=== PATIENT | male | born 1975 | race African-American/Black ===

== ENCOUNTER 2018-02-25 06:48 | Inpatient (IN) | payer SELFPAY ==
[~2018-02-25] VITALS: Ht 162.6 cm; Wt 78.0 kg
[2018-02-25] VITALS (19 sets, daily range): BP systolic 141–190; BP diastolic 69–105
[~2018-02-25 06:48] MED LIST: CIPR500T94 PO; HYDR-971 PO; IBUP-1060 PO
[2018-02-25] MEDS ORDERED: ASPIRIN CHEWABLE 81 MG TABLET. PO ONE (07:00)
[2018-02-25] MEDS ORDERED: NITROGLYCERIN PREMIX 250 ML IV ONE (07:00)
[2018-02-25] MEDS ORDERED: MORPHINE SULFATE 2 MG/ML VIAL. IV ONE (07:00)
[2018-02-25] MEDS ORDERED: LABETALOL 20 MG/4 ML DISP.SYRIN. IVP ONE (07:00)
--- NOTE | 2018-02-25 07:06 | PHYS DOC ---
Past Medical History Past Medical History: Hypertension Past Surgical History: No Surgical History Smoking: Cigarettes, 1 Pack Per Day Alcohol Use: Occasionally Drug Use: Marijuana Adult General Chief Complaint Chief Complaint: CHEST PAIN HPI HPI Patient is a 43-year-old -Serbian male who presents to the emergency department for evaluation. He states that for the past week he has had some sharp anterior chest pain, which does not radiate, it is not worsened by exertion or deep breathing. He states he has also had some exertional shortness of breath. His symptoms have been waxing and waning for a week. Nothing in particular seems to affect his chest pain, either improving or exacerbating his discomfort. He has not had any nausea, vomiting, or diaphoresis. He denies any headache or vision changes. He is noted to be profoundly hypertensive upon arrival. He states he has a history of hypertension, but does not go to doctors regularly and has not been on medication. He denies any fevers or chills, or cough. Patient does admit to occasional marijuana use but denies cocaine use or other illicit drugs. Review of Systems Review of Systems Constitutional: Denies fever or chills [] Eyes: Denies change in visual acuity, redness, or eye pain [] HENT: Denies nasal congestion or sore throat [] Respiratory: Denies cough or pleuritic chest pain[] Cardiovascular: No additional information not addressed in HPI [] GI: Denies abdominal pain, nausea, vomiting, bloody stools or diarrhea [] : Denies dysuria or hematuria [] Musculoskeletal: Denies back pain or joint pain, denies radiation of chest pain to the back. [] Integument: Denies rash or skin lesions [] Neurologic: Denies headache, focal weakness or sensory changes [] Endocrine: Denies polyuria or polydipsia [] All other systems were reviewed and found to be within normal limits, except as documented in this note. Current Medications Current Medications Current Medications Medications (Trade) Dose Ordered Sig/Preeti Start Time Stop Time Status Last Admin Dose Admin Aspirin (Children'S Aspirin) 324 mg 1X ONCE 02/25/18 07:00 02/25/18 07:04 DC 02/25/18 07:14 324 MG Furosemide (Lasix) 40 mg 1X ONCE 02/25/18 08:00 02/25/18 08:01 02/25/18 07:57 40 MG Labetalol HCl (Normodyne Iv Push) 20 mg 1X ONCE 02/25/18 07:00 02/25/18 07:04 DC 02/25/18 07:12 20 MG Morphine Sulfate (Morphine Sulfate) 4 mg 1X ONCE 02/25/18 07:00 02/25/18 07:04 DC 02/25/18 07:15 4 MG Nitroglycerin/ Dextrose 250 ml @ 3 mls/hr 1X ONCE 02/25/18 07:00 02/28/18 18:19 02/25/18 07:14 3 MLS/HR Potassium Chloride/Water 100 ml @ 100 mls/hr Q1H 02/25/18 08:00 02/25/18 09:59 02/25/18 07:50 100 MLS/HR Potassium Chloride (Klor-Con) 40 meq 1X ONCE 02/25/18 07:45 02/25/18 07:46 DC 02/25/18 07:49 40 MEQ Allergies Allergies Allergies Coded Allergies Type Severity Reaction Last Updated Verified No Known Drug Allergies 02/02/14 No Physical Exam Physical Exam PHYSICAL EXAM: CONSTITUTIONAL: Well developed, well nourished HEAD: normocephalic, atraumatic EENT: PERRL, EOMI. Conjunctivae normal color, sclerae non-icteric; moist mucous membranes. NECK: Supple, non-tender; no meningismus. LUNGS: Lungs CTA, breathing even and unlabored. Normal air movement. HEART: Regular rate and rhythm, no murmur CHEST: No deformity; non-tender ABDOMEN: The abdomen is soft, and non-tender, no masses or bruits. EXTREM: Normal ROM; no deformity, no calf tenderness. Normal pulses palpable in all extremities. There is no pedal edema. SKIN: No rash; no diaphoresis NEURO: Alert; normal speech and cognition; CN's grossly intact; strength grossly intact without focal deficit. BACK: No CVA TTP. Current Patient Data Vital Signs Vital Signs Date Time Temp Pulse Resp B/P (MAP) Pulse Ox O2 Delivery O2 Flow Rate FiO2 02/25/18 07:53 83 196/129 (151) 02/25/18 07:26 19 99 Room Air 02/25/18 06:48 98.3 98.3 Lab Values Laboratory Tests Test 02/25/18 07:00 White Blood Count 8.8 x10^3/uL (4.0-11.0) Red Blood Count 4.81 x10^6/uL (4.30-5.70) Hemoglobin 14.2 g/dL (13.0-17.5) Hematocrit 42.3 % (39.0-53.0) Mean Corpuscular Volume 88 fL (79-100) Mean Corpuscular Hemoglobin 30 pg (25-35) Mean Corpuscular Hemoglobin Concent 34 g/dL (31-37) Red Cell Distribution Width 13.8 % (11.5-14.5) Platelet Count 213 x10^3/uL (140-400) Neutrophils (%) (Auto) 70 % (31-73) Lymphocytes (%) (Auto) 20 % (24-48) L Monocytes (%) (Auto) 8 % (0-9) Eosinophils (%) (Auto) 1 % (0-3) Basophils (%) (Auto) 1 % (0-3) Neutrophils # (Auto) 6.1 x10^3uL (1.8-7.7) Lymphocytes # (Auto) 1.8 x10^3/uL (1.0-4.8) Monocytes # (Auto) 0.7 x10^3/uL (0.0-1.1) Eosinophils # (Auto) 0.1 x10^3/uL (0.0-0.7) Basophils # (Auto) 0.1 x10^3/uL (0.0-0.2) Sodium Level 129 mmol/L (136-145) L Potassium Level 2.7 mmol/L (3.5-5.1) *L Chloride Level 92 mmol/L (98-107) L Carbon Dioxide Level 31 mmol/L (21-32) Anion Gap 6 (6-14) Blood Urea Nitrogen 18 mg/dL (8-26) Creatinine 1.9 mg/dL (0.7-1.3) H Estimated GFR (Cockcroft-Gault) 47.5 BUN/Creatinine Ratio 9 (6-20) Glucose Level 139 mg/dL (70-99) H Calcium Level 10.5 mg/dL (8.5-10.1) H Magnesium Level 2.2 mg/dL (1.8-2.4) Total Bilirubin 1.0 mg/dL (0.2-1.0) Aspartate Amino Transferase (AST) 31 U/L (15-37) Alanine Aminotransferase (ALT) 25 U/L (16-63) Alkaline Phosphatase 86 U/L (46-116) Creatine Kinase 237 U/L (39-308) Creatine Kinase MB (Mass) 2.1 ng/mL (0.0-3.6) Creatine Kinase MB Relative Index 0.9 % (0-4) Troponin I Quantitative 0.141 ng/mL (0.000-0.055) [id number]-[id number]-Type Natriuretic Peptide 9389 pg/mL (0-124) H Total Protein 8.4 g/dL (6.4-8.2) H Albumin 3.9 g/dL (3.4-5.0) Albumin/Globulin Ratio 0.9 (1.0-1.7) L Laboratory Tests 02/25/18 07:00 Laboratory Tests 02/25/18 07:00 EKG EKG [Normal sinus rhythm at a rate of 108 bpm, normal axis, normal intervals. Biatrial enlargement is present. There are diffuse nonspecific ST/T changes, with subtle ST depression inferiorly and laterally. There are no old EKG's available for comparison. ] Radiology/Procedures Radiology/Procedures [PROCEDURE: PORTABLE CHEST 1V Portable chest, 02/25/2018: HISTORY: Chest pain, hypertension The heart size and pulmonary vascularity are normal. No pulmonary infiltrate is seen. There is no evidence of pleural fluid. IMPRESSION: No acute cardiopulmonary abnormality is detected.] Course & Med Decision Making Course & Med Decision Making Pertinent Labs and Imaging studies reviewed. (See chart for details) 8:00 AM:The patient's condition remains stable. Blood pressure has improved to 192/127, from approximately 260/160 upon arrival. The patient's chest discomfort has improved as well. I spoke with the hospitalist, who accepted the patient to the hospital for further evaluation and treatment. CRITICAL CARE TIME: 45 Minutes, excluding any procedures and care of other patients. Dragon Disclaimer Dragon Disclaimer This electronic medical record was generated, in whole or in part, using a voice recognition dictation system. Departure Departure Impression: Primary Impression: Hypertensive emergency Additional Impressions: Chest pain Renal insufficiency Hypokalemia Disposition: ADMITTED INPATIENT (ICU) Admitting Physician: Xie. Youssef Condition: GUARDED Referrals: NO PCP (PCP) Problem Qualifiers DORINDA BRADLEY MD Feb 25, 2018 07:06
[2018-02-25 07:17] LABS: BASO # 0.1 x10^3/uL (0.0-0.2); BASO % 1 % (0-3); EOS # 0.1 x10^3/uL (0.0-0.7); EOS % 1 % (0-3); HEMATOCRIT 42.3 % (39.0-53.0); HEMOGLOBIN 14.2 g/dL (13.0-17.5); LYMPH # 1.8 x10^3/uL (1.0-4.8); LYMPH % 20 % (24-48); MEAN CORPUSCULAR HEMOGLOBIN 30 pg (25-35); MEAN CORPUSCULAR HGB CONC 34 g/dL (31-37); MEAN CORPUSCULAR VOLUME 88 fL (79-100); MONO # 0.7 x10^3/uL (0.0-1.1); MONO % 8 % (0-9); NEUT # 6.1 x10^3uL (1.8-7.7); NEUT % 70 % (31-73); PLATELET COUNT 213 x10^3/uL (140-400); RED BLOOD COUNT 4.81 x10^6/uL (4.30-5.70); RED CELL DISTRIBUTION WIDTH 13.8 % (11.5-14.5); WHITE BLOOD COUNT 8.8 x10^3/uL (4.0-11.0)
[2018-02-25 07:29] LABS: ALBUMIN 3.9 g/dL (3.4-5.0); ALBUMIN/GLOBULIN RATIO 0.9 (1.0-1.7); CALCIUM 10.5 mg/dL (8.5-10.1); CREATININE 1.9 mg/dL (0.7-1.3); GFR 47.5; MAGNESIUM 2.2 mg/dL (1.8-2.4); TOTAL PROTEIN 8.4 g/dL (6.4-8.2)
[2018-02-25 07:32] LABS: POTASSIUM 2.7 mmol/L (3.5-5.1)
--- NOTE | 2018-02-25 07:40 | RAD ---
Portable chest, 02/25/2018: HISTORY: Chest pain, hypertension The heart size and pulmonary vascularity are normal. No pulmonary infiltrate is seen. There is no evidence of pleural fluid. IMPRESSION: No acute cardiopulmonary abnormality is detected. Electronically signed by: Erasto Cortes MD (02/25/2018 7:37 AM) [facility]
[2018-02-25] MEDS ORDERED: POTASSIUM CHLORIDE 20 MEQ TABLET.ER. PO ONE ×2 (07:45→09:30)
[2018-02-25] MEDS ORDERED: POTASSIUM CHLORIDE 20MEQ 50 ML IV ONE (07:45)
[2018-02-25] MEDS: POTASSIUM CHLORIDE 10MEQ 100 ML IV SCH ×2 (07:50→09:17)
[2018-02-25] MEDS ORDERED: FUROSEMIDE 20 MG/2 ML VIAL. IVP ONE (08:00)
--- NOTE | 2018-02-25 08:39 | EKG ---
[facility] [address] [place] [address] Test Date: 2018-02-25 Test Time: 06:52:48 Pat Name: IMANI OLMSTEAD Department: Room: 108 1 Gender: M Software Client Architect: : [id number] Requested By: DORINDA BRADLEY Order Number: [id number] Reading MD: Antoine Fernandez MD Measurements Intervals [place] Rate: 108 P: 66 [place]: 120 QRS: 23 QRSD: 96 T: 137 QT: 336 QTc: 454 Interpretive Statements SINUS TACHYCARDIA BIATRIAL ENLARGEMENT LVH WITH REPOLARIZATION ABNORMALITY Electronically Signed On 02-25-2018 11:00:20 CDT by Antoine Fernandez MD
[2018-02-25] MEDS ORDERED: ACETAMINOPHEN 325 MG TABLET. PO PRN (08:45)
[2018-02-25] MEDS ORDERED: HYDROcodone/APAP 5/325MG 1 TAB TABLET PO PRN (08:45)
[2018-02-25] MEDS ORDERED: MORPHINE SULFATE 2 MG/ML VIAL. IV PRN (08:45)
[2018-02-25] MEDS ORDERED: DOCUSATE SODIUM 100 MG CAPSULE. PO PRN (08:45)
[2018-02-25] MEDS ORDERED: traMADol 50 MG TABLET PO PRN (08:45)
[2018-02-25] MEDS ORDERED: ONDANSETRON PF 4 MG/2 ML VIAL. IV PRN (08:45)
[2018-02-25] MEDS: amLODIPine BESYLATE 10 MG TABLET PO SCH (10:03)
[2018-02-25] MEDS: LABETALOL 20 MG/4 ML DISP.SYRIN. IVP PRN (10:29)
--- NOTE | 2018-02-25 11:47 | PDOC1 ---
History and Physical Date of Admission Date of Admission 02/25/18 Identification/Chief Complaint Chief Complaint sob, chest pain Source Source: Chart review, Patient History of Present Illness History of Present Illness HPI HPI Patient is a 43-year-old -Citizen Of [place] male who presents to the emergency department for evaluation for chest pain and sob for 1 week. pt was diagnosed with HTN 2 years , never on meds. no PCP. 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 The chest pain is left side, sharp, lasting for seconds, no radiation, has sob, no diaphoresis or related N/V. had N /V and diarrhea one time last week. He cannot sleep well with sob. no fever, chills, cough, sputum. He states he has also had He is noted to be profoundly hypertensive upon arrival. Patient does admit to occasional marijuana use but denies cocaine use or other illicit drugs. BP>200 in ER, got one time labetolol and nitro drip started, BP still high as 170s when i saw him in ER. pain free at that time. 1PPD ,6 packs of beer daily, denies withdrawl. Past Medical History Cardiovascular: HTN Past Surgical History Past Surgical History: No pertinent history Family History Family History: Hypertension Social History Smoke: 1 pack per day ALCOHOL: heavy Drugs: Marijuana Current Problem List Problem List Problems Medical Problems: (1) Chest pain Status: Acute (2) Hypertensive emergency Status: Acute (3) Hypokalemia Status: Acute (4) Renal insufficiency Status: Acute Current Medications Current Medications Current Medications Medications (Trade) Dose Ordered Sig/Preeti Start Time Stop Time Status Last Admin Dose Admin Acetaminophen (Tylenol) 650 mg PRN Q6HRS PRN 02/25/18 08:45 Acetaminophen/ Hydrocodone Bitart (Lortab 5/325) 1 tab PRN Q6HRS PRN 02/25/18 08:45 Amlodipine Besylate (Norvasc) 10 mg DAILY 02/25/18 09:30 02/25/18 10:03 10 MG Aspirin (Children'S Aspirin) 324 mg 1X ONCE 02/25/18 07:00 02/25/18 07:04 DC 02/25/18 07:14 324 MG Docusate Sodium (Colace) 100 mg PRN DAILY PRN 02/25/18 08:45 Furosemide (Lasix) 40 mg 1X ONCE 02/25/18 08:00 02/25/18 08:01 DC 02/25/18 07:57 40 MG Labetalol HCl (Normodyne Iv Push) 20 mg PRN Q2HR PRN 02/25/18 08:45 02/25/18 10:29 20 MG Morphine Sulfate (Morphine Sulfate) 2 mg PRN Q2HR PRN 02/25/18 08:45 Nicardipine HCl 50 mg/Sodium Chloride 270 ml @ 0 mls/hr CONT PRN 02/25/18 10:45 02/25/18 10:47 0 MLS/HR Nitroglycerin/ Dextrose 250 ml @ 3 mls/hr 1X ONCE 02/25/18 07:00 02/28/18 18:19 02/25/18 07:14 3 MLS/HR Ondansetron HCl (Zofran) 4 mg PRN Q6HRS PRN 02/25/18 08:45 Potassium Chloride/Water 100 ml @ 100 mls/hr Q1H 02/25/18 08:00 02/25/18 09:59 DC 02/25/18 09:17 100 MLS/HR Potassium Chloride (Klor-Con) 40 meq 1X ONCE 02/25/18 09:30 02/25/18 09:31 DC 02/25/18 10:03 40 MEQ Tramadol HCl (Ultram) 50 mg PRN Q6HRS PRN 02/25/18 08:45 Allergies Allergies Allergies Coded Allergies Type Severity Reaction Last Updated Verified No Known Drug Allergies 02/02/14 No ROS Review of System CONSTITUTIONAL: No fever or chills EYES: No recent changes SKIN: No rash or itching CARDIOVASCULAR: No chest pain, syncope, palpitations, or edema RESPIRATORY: No SOB or cough GASTROINTESTINAL: No nausea, vomiting or abdominal pain NEUROLOGICAL: No headaches or weakness ENDOCRINE: No cold or heat intolerance GENITOURINARY: No urgency or frequency of urination MUSCULOSKELETAL: No back pain or joint pain LYMPHATICS: No enlarged lymph nodes PSYCHIATRIC: No anxiety or depression Physical Exam Physical Exam GEN.: No apparent distress. Alert and oriented. HEENT: Head is normocephalic, atraumatic NECK: Supple. LUNGS: Clear to auscultation. HEART: RRR, S1, S2 present. Peripheral pulses intact ABDOMEN: Soft, nontender. Positive bowel sounds. EXTREMITIES: Without any cyanosis. NEUROLOGIC: Normal speech, normal tone PSYCHIATRIC: Normal affect, normal mood. SKIN: No ulcerations Vitals Vitals Vital Signs Date Time Temp Pulse Resp B/P (MAP) Pulse Ox O2 Delivery O2 Flow Rate FiO2 02/25/18 11:00 83 20 183/69 (107) 96 Room Air 02/25/18 10:00 98.2 98.2 Labs Labs Laboratory Tests Test 02/25/18 07:00 White Blood Count 8.8 x10^3/uL (4.0-11.0) Red Blood Count 4.81 x10^6/uL (4.30-5.70) Hemoglobin 14.2 g/dL (13.0-17.5) Hematocrit 42.3 % (39.0-53.0) Mean Corpuscular Volume 88 fL (79-100) Mean Corpuscular Hemoglobin 30 pg (25-35) Mean Corpuscular Hemoglobin Concent 34 g/dL (31-37) Red Cell Distribution Width 13.8 % (11.5-14.5) Platelet Count 213 x10^3/uL (140-400) Neutrophils (%) (Auto) 70 % (31-73) Lymphocytes (%) (Auto) 20 % (24-48) Monocytes (%) (Auto) 8 % (0-9) Eosinophils (%) (Auto) 1 % (0-3) Basophils (%) (Auto) 1 % (0-3) Neutrophils # (Auto) 6.1 x10^3uL (1.8-7.7) Lymphocytes # (Auto) 1.8 x10^3/uL (1.0-4.8) Monocytes # (Auto) 0.7 x10^3/uL (0.0-1.1) Eosinophils # (Auto) 0.1 x10^3/uL (0.0-0.7) Basophils # (Auto) 0.1 x10^3/uL (0.0-0.2) Sodium Level 129 mmol/L (136-145) Potassium Level 2.7 mmol/L (3.5-5.1) Chloride Level 92 mmol/L (98-107) Carbon Dioxide Level 31 mmol/L (21-32) Anion Gap 6 (6-14) Blood Urea Nitrogen 18 mg/dL (8-26) Creatinine 1.9 mg/dL (0.7-1.3) Estimated GFR (Cockcroft-Gault) 47.5 BUN/Creatinine Ratio 9 (6-20) Glucose Level 139 mg/dL (70-99) Calcium Level 10.5 mg/dL (8.5-10.1) Magnesium Level 2.2 mg/dL (1.8-2.4) Total Bilirubin 1.0 mg/dL (0.2-1.0) Aspartate Amino Transf (AST/SGOT) 31 U/L (15-37) Alanine Aminotransferase (ALT/SGPT) 25 U/L (16-63) Alkaline Phosphatase 86 U/L (46-116) Creatine Kinase 237 U/L (39-308) Creatine Kinase MB (Mass) 2.1 ng/mL (0.0-3.6) Creatine Kinase MB Relative Index 0.9 % (0-4) Troponin I Quantitative 0.141 ng/mL (0.000-0.055) [id number]-Type Natriuretic Peptide 9389 pg/mL (0-124) Total Protein 8.4 g/dL (6.4-8.2) Albumin 3.9 g/dL (3.4-5.0) Albumin/Globulin Ratio 0.9 (1.0-1.7) Thyroid Stimulating Hormone (TSH) 5.573 uIU/mL (0.358-3.74) Laboratory Tests Test 02/25/18 07:00 White Blood Count 8.8 x10^3/uL (4.0-11.0) Red Blood Count 4.81 x10^6/uL (4.30-5.70) Hemoglobin 14.2 g/dL (13.0-17.5) Hematocrit 42.3 % (39.0-53.0) Mean Corpuscular Volume 88 fL (79-100) Mean Corpuscular Hemoglobin 30 pg (25-35) Mean Corpuscular Hemoglobin Concent 34 g/dL (31-37) Red Cell Distribution Width 13.8 % (11.5-14.5) Platelet Count 213 x10^3/uL (140-400) Neutrophils (%) (Auto) 70 % (31-73) Lymphocytes (%) (Auto) 20 % (24-48) Monocytes (%) (Auto) 8 % (0-9) Eosinophils (%) (Auto) 1 % (0-3) Basophils (%) (Auto) 1 % (0-3) Neutrophils # (Auto) 6.1 x10^3uL (1.8-7.7) Lymphocytes # (Auto) 1.8 x10^3/uL (1.0-4.8) Monocytes # (Auto) 0.7 x10^3/uL (0.0-1.1) Eosinophils # (Auto) 0.1 x10^3/uL (0.0-0.7) Basophils # (Auto) 0.1 x10^3/uL (0.0-0.2) Sodium Level 129 mmol/L (136-145) Potassium Level 2.7 mmol/L (3.5-5.1) Chloride Level 92 mmol/L (98-107) Carbon Dioxide Level 31 mmol/L (21-32) Anion Gap 6 (6-14) Blood Urea Nitrogen 18 mg/dL (8-26) Creatinine 1.9 mg/dL (0.7-1.3) Estimated GFR (Cockcroft-Gault) 47.5 BUN/Creatinine Ratio 9 (6-20) Glucose Level 139 mg/dL (70-99) Calcium Level 10.5 mg/dL (8.5-10.1) Magnesium Level 2.2 mg/dL (1.8-2.4) Total Bilirubin 1.0 mg/dL (0.2-1.0) Aspartate Amino Transf (AST/SGOT) 31 U/L (15-37) Alanine Aminotransferase (ALT/SGPT) 25 U/L (16-63) Alkaline Phosphatase 86 U/L (46-116) Creatine Kinase 237 U/L (39-308) Creatine Kinase MB (Mass) 2.1 ng/mL (0.0-3.6) Creatine Kinase MB Relative Index 0.9 % (0-4) Troponin I Quantitative 0.141 ng/mL (0.000-0.055) IX-[id number]-[id number]-Type Natriuretic Peptide 9389 pg/mL (0-124) Total Protein 8.4 g/dL (6.4-8.2) Albumin 3.9 g/dL (3.4-5.0) Albumin/Globulin Ratio 0.9 (1.0-1.7) Thyroid Stimulating Hormone (TSH) 5.573 uIU/mL (0.358-3.74) VTE Prophylaxis Ordered VTE Prophylaxis Devices: Yes VTE Pharmacological Prophylaxi: Yes Assessment/Plan Assessment/Plan sob, likely systolic CHF exacerbation chest pain, unstable angina vs. NSTEMI MARTINA, vasomotor vs, CKD3 tobaccoism alcoholism drug abuse with marijuana HTN urgency plan: card consult check tsh, t3, t4, lipid panel cycLE CE, first trop is high, possible demanding ischemia or recent MA has ABnormal EKG with ST depression add amlodipine, would like to start coreg if ok with card on nitro drip, admit to ICU, would like to change to labetolol if nitro not working well FA , VITB1, Ativan prn lovenox bid for now check echo labs tmr US renal GERSON AVERY MD Feb 25, 2018 11:47
[2018-02-25 12:21] LABS: FREE T4 1.25 ng/dL (0.76-1.46)
--- NOTE | 2018-02-25 12:29 | PDOC2 ---
JULIA ROGERS ASSEMBLER FINGER BUFFS 02/25/18 1229: CARDIAC CONSULT DATE OF CONSULT Date of Consult DATE: 02/25/18 TIME: 12:26 REASON FOR CONSULT Reason for Consult: chest pain, hypertensive urgency REFERRING PHYSICIAN Referring Physician: Pipo SOURCE Source: Chart review, Patient HISTORY OF PRESENT ILLNESS HISTORY OF PRESENT ILLNESS 43 year old male admitted through the ER with a 2 week history of sharp left sided chest pain both at rest and with exertion associated with dyspnea but no other symptoms. BP of 250/163 on presentation to ER. Treated with IV meds and started on NTG gtt. Contacted by KNOCKDOWN WORKER as NTG was ineffective in controlling BP. Nicardipine gtt ordered with titration. Patient admits to at least 2 year history of HTN but no treatment as he was told to obtain PCP to manage HTN. K was 2.7 on arrival and has been replaced. NT- proBNP of 9389. TSH elevated @ 5.573. Initial troponin was 0.141 and EKG with LVH and T wave inversions anterolaterally. Reason for Visit: hypertensive urgency; NSTEMI PAST MEDICAL HISTORY Cardiovascular: HTN PAST SURGICAL HISTORY Past Surgical History: No pertinent history FAMILY HISTORY Family History: Hypertension, Stroke SOCIAL HISTORY Smoke: 1 pack per day ALCOHOL: heavy (6 pack per day) Drugs: Marijuana CURRENT MEDICATIONS CURRENT MEDICATIONS Current Medications Medications (Trade) Dose Ordered Sig/Preeti Route PRN Reason Start Time Stop Time Status Last Admin Dose Admin Aspirin (Children'S Aspirin) 324 mg 1X ONCE PO 02/25/18 07:00 02/25/18 07:04 DC 02/25/18 07:14 Morphine Sulfate (Morphine Sulfate) 4 mg 1X ONCE IV 02/25/18 07:00 02/25/18 07:04 DC 02/25/18 07:15 Nitroglycerin/ Dextrose 250 ml @ 3 mls/hr 1X ONCE IV 02/25/18 07:00 02/28/18 18:19 02/25/18 07:14 Labetalol HCl (Normodyne Iv Push) 20 mg 1X ONCE IVP 02/25/18 07:00 02/25/18 07:04 DC 02/25/18 07:12 Potassium Chloride (Klor-Con) 40 meq 1X ONCE PO 02/25/18 07:45 02/25/18 07:46 DC 02/25/18 07:49 Potassium Chloride/Water 100 ml @ 100 mls/hr Q1H IV 02/25/18 08:00 02/25/18 09:59 DC 02/25/18 09:17 Furosemide (Lasix) 40 mg 1X ONCE IVP 02/25/18 08:00 02/25/18 08:01 DC 02/25/18 07:57 Amlodipine Besylate (Norvasc) 10 mg DAILY PO 02/25/18 09:30 02/25/18 10:03 Labetalol HCl (Normodyne Iv Push) 20 mg PRN Q2HR PRN IVP HYPERTENSION, SEE COMMENTS 02/25/18 08:45 02/25/18 10:29 Potassium Chloride (Klor-Con) 40 meq 1X ONCE PO 02/25/18 09:30 02/25/18 09:31 DC 02/25/18 10:03 Nicardipine HCl 50 mg/Sodium Chloride 270 ml @ 0 mls/hr CONT PRN IV SEE I/O RECORD 02/25/18 10:45 02/25/18 10:47 ALLERGIES ALLERGIES: Coded Allergies: No Known Drug Allergies (Unverified , 02/02/14) ROS General: No: Chills, Night Sweats, Fatigue, Malaise, Appetite, Other PSYCHOLOGICAL ROS: No: Anxiety, Behavioral Disorder, Concentration difficultie , Decreased libido, Depression, Disorientation, Hallucinations, Hostility, Irritablity, Memory difficulties, Mood Swings, Obsessive thoughts, Physical abuse, Sexual abuse, Sleep disturbances, Suicidal ideation, Other Eyes: No Blurry vision, No Decreased vision, No Double vision, No Dry eyes, No Excessive tearing, No Eye Pain, No Itchy Eyes, No Loss of vision, No Photophobia , No Scotomata, No Uses contacts, No Uses glasses, No Other HEENT: No: Heacaches, Visual Changes, Hearing change, Nasal congestion, Nasal discharge, Oral lesions, Sinus pain, Sore Throat, Epistaxis, Sneezing, Snoring, Tinnitus, Vertigo, Vocal changes, Other ALLERGY AND IMMUNOLOGY: No: Hives, Insect Bite Sensitivity, Itchy/Watery Eyes, Nasal Congestion, Post Nasal Drip, Seasonal Allergies, Other Hematological and Lymphatic: No: Bleeding Problems, Blood Clots, Blood Transfusions, Brusing, Night Sweats, Pallor, Swollen Lymph Nodes, Other ENDOCRINE: No: Breast Changes, Galactorrhea, Hair Pattern Changes, Hot Flashes , Malaise/lethargy, Mood Swings, Palpitations, Polydipsia/polyuria, Skin Changes , Temperature Intolerance, Unexpected Weight Changes, Other Respiratory: YES: Shortness of breath, SOB with excertion; No: Cough, Hemoptysis, Orthopnea, Pleuritic Pain, Sputum Changes, Stridor, Tachypnea, Wheezing, Other Cardiovascular: yes Chest Pain, yes Edema (left knee) Genitourinary: No Dysuria, No Frequency, No Incontinence, No Hematuria, No Retention, No Discharge, No Urgency, No Pain, No Flank Pain, No Other Musculoskeletal: No Gait Disturbance, No Joint Pain, No Joint Stiffness, No Joint Swelling, No Muscle Pain, No Muscular Weakness, No Pain In:, No Swelling In:, No Other Neurological: No Behavorial Changes, No Bowel/Bladder ControlChng, No Confusion , No Dizziness, No Gait Disturbance, No Headaches, No Impaired Coord/balance, No Memory Loss, No Numbness/Tingling, No Seizures, No Speech Problems, No Tremors, No Visual Changes, No Weakness, No Other Skin: No Dry Skin, No Eczema, No Hair Changes, No Lumps, No Mole Changes, No Mottling, No Nail Changes, No Pruritus, No Rash, No Skin Lesion Changes, No Other, No Acne PHYSICAL EXAM General: Alert, Oriented X3, Cooperative, No acute distress HEENT: Atraumatic Lungs: Clear to auscultation Heart: Regular rate, Normal S1, Normal S2, No murmurs Abdomen: Soft Extremities: No edema, Normal pulses Skin: No rashes Neuro: Normal speech Psych/Mental Status: Mental status NL, Mood NL MUSCULOSKELETAL: No deformity VITALS VITALS Vital Signs Date Time Temp Pulse Resp B/P (MAP) Pulse Ox O2 Delivery O2 Flow Rate FiO2 02/25/18 12:00 98.4 79 20 149/82 (104) 96 Room Air 98.4 LABS Lab: Laboratory Tests Test 02/25/18 07:00 White Blood Count 8.8 x10^3/uL (4.0-11.0) Red Blood Count 4.81 x10^6/uL (4.30-5.70) Hemoglobin 14.2 g/dL (13.0-17.5) Hematocrit 42.3 % (39.0-53.0) Mean Corpuscular Volume 88 fL (79-100) Mean Corpuscular Hemoglobin 30 pg (25-35) Mean Corpuscular Hemoglobin Concent 34 g/dL (31-37) Red Cell Distribution Width 13.8 % (11.5-14.5) Platelet Count 213 x10^3/uL (140-400) Neutrophils (%) (Auto) 70 % (31-73) Lymphocytes (%) (Auto) 20 % (24-48) Monocytes (%) (Auto) 8 % (0-9) Eosinophils (%) (Auto) 1 % (0-3) Basophils (%) (Auto) 1 % (0-3) Neutrophils # (Auto) 6.1 x10^3uL (1.8-7.7) Lymphocytes # (Auto) 1.8 x10^3/uL (1.0-4.8) Monocytes # (Auto) 0.7 x10^3/uL (0.0-1.1) Eosinophils # (Auto) 0.1 x10^3/uL (0.0-0.7) Basophils # (Auto) 0.1 x10^3/uL (0.0-0.2) Sodium Level 129 mmol/L (136-145) Potassium Level 2.7 mmol/L (3.5-5.1) Chloride Level 92 mmol/L (98-107) Carbon Dioxide Level 31 mmol/L (21-32) Anion Gap 6 (6-14) Blood Urea Nitrogen 18 mg/dL (8-26) Creatinine 1.9 mg/dL (0.7-1.3) Estimated GFR (Cockcroft-Gault) 47.5 BUN/Creatinine Ratio 9 (6-20) Glucose Level 139 mg/dL (70-99) Calcium Level 10.5 mg/dL (8.5-10.1) Magnesium Level 2.2 mg/dL (1.8-2.4) Total Bilirubin 1.0 mg/dL (0.2-1.0) Aspartate Amino Transf (AST/SGOT) 31 U/L (15-37) Alanine Aminotransferase (ALT/SGPT) 25 U/L (16-63) Alkaline Phosphatase 86 U/L (46-116) Creatine Kinase 237 U/L (39-308) Creatine Kinase MB (Mass) 2.1 ng/mL (0.0-3.6) Creatine Kinase MB Relative Index 0.9 % (0-4) Troponin I Quantitative 0.141 ng/mL (0.000-0.055) FA-Zlw-Q-Type Natriuretic Peptide 9389 pg/mL (0-124) Total Protein 8.4 g/dL (6.4-8.2) Albumin 3.9 g/dL (3.4-5.0) Albumin/Globulin Ratio 0.9 (1.0-1.7) Thyroid Stimulating Hormone (TSH) 5.573 uIU/mL (0.358-3.74) Free Thyroxine 1.25 ng/dL (0.76-1.46) Free Triiodothyronine (T3) pg/mL 4.10 pg/mL (2.18-3.98) IMAGES IMAGES CXR - no acute process EKG EKG as noted in HPI ASSESSMENT/PLAN ASSESSMENT/PLAN 1. hypertensive urgency --stop NTG gtt and convert to nicardipine as NTG not controlling BP --would add BB in setting of NSTEMI --social sciences lecturer to see re: [facility] address 2. NSTEMI --troponin was 0.14; EKG with T wave inversions anterolaterally with LVH --? demand mediated but with risk factors for ischemia; needs MPI tomorrow if BP controlled --given ASA and started on BID lovenox; add BB; check FLP 3. substance abuse REINIER LINN MD 02/25/18 1506: CARDIAC CONSULT ASSESSMENT/PLAN ASSESSMENT/PLAN Patient seen and examined. Agree with WHOLESALER's assessment and plan. Chest pain with atypical features. Accelerated hypertension secondary to noncompliance/inability to afford medications Agree with changing nitroglycerin to Cardene infusion, titrating oral antihypertensives and social sciences lecturer consultation Slight troponin elevation probably demand ischemia from uncontrolled hypertension 2-D echo showed LVEF 30% Agree with Lexiscan nuclear stress test to rule out ischemia Thank you for your consultation JULIA ROGERS APRN Feb 25, 2018 12:29 REINIER LINN MD Feb 25, 2018 15:06
[2018-02-25] MEDS: ASPIRIN ENTERIC COATED 81 MG TABLET.DR. PO SCH (12:38)
[2018-02-25] MEDS: THIAMINE 100 MG TABLET. PO SCH (12:38)
[2018-02-25] MEDS: FOLIC ACID 1 MG TABLET. PO SCH (12:38)
--- NOTE | 2018-02-25 13:09 | CARD ---
MR#: [id number] Date of Study: 02/25/2018 Ordering Physician: GERSON AVERY, Referring Physician: GERSON AVERY, Tech: CHERRI Neil APPROVED REPORT EXAM: Two-dimensional and M-mode echocardiogram with Doppler and color Doppler. Other Information Quality : AverageHR: 82bpm INDICATION Cardiomyopathy Congestive Heart Failure 2D DIMENSIONS Left Atrium(2D)3.6 (1.6-4.0cm)IVSd1.3 (0.7-1.1cm) Aortic Root(2D)3.2 (2.0-3.7cm)LVDd5.0 (3.9-5.9cm) LVOT Diameter2.3 (1.8-2.4cm)PWd1.8 (0.7-1.1cm) LVDs4.3 (2.5-4.0cm)FS (%) 14.8 % SV37.7 mlLVEF(%)31.3 (>50%) M-Mode DIMENSIONS IVSd1.46 (0.7-1.1cm)LVDd5.21 (4.0-5.6cm) PWd0.86 (0.7-1.1cm)IVSs1.83 cm FS (%) 22 %LVDs4.04 (2.0-3.8cm) ESV(Teich)71.5 mlPWs2.11 cm LVEF(%)53 (>50%) Aortic Valve AoV Peak Tomasz.105.5cm/sAoV VTI17.8cm AO Peak GR.4.5mmHgLVOT VTI 14.85cm AO Mean GR.3mmHgAI P 1/2 [id number] Mitral Valve MV E Wpfaldec55.1cm/sMV DECEL [id number] MV A Dmsvurfe46.4cm/sE/A Ratio0.8 TDI Lateral E' P. V4.25cm/sMedial E' P. V5.73cm/s E/Lateral E'15.3E/Medial E'11.4 Pulmonary Valve PV Peak Wlmeydle830.1cm/s LEFT VENTRICLE The left ventricle is normal size. There is mild to moderate concentric left ventricular hypertrophy. Left ventricle systolic function is moderately impaired. The Ejection Fraction is 30%. There is glob al hypokinesis of the left ventricle. Transmitral Doppler flow pattern is Grade I-abnormal relaxation pattern. RIGHT VENTRICLE The right ventricle apex is not well visualized. Right ventricular function cannot be assessed due to poor image quality. ATRIA The left atrium size is normal. The right atrium size is normal. The interatrial septum is intact wit h no evidence for an atrial septal defect or patent foramen ovale as noted on 2-D or Doppler imaging. AORTIC VALVE The aortic valve is mildly thickened but opens well. Doppler and Color Flow revealed trace to mild ao rtic regurgitation. There is no significant aortic valvular stenosis. There is no aortic valvular veg etation. MITRAL VALVE The mitral valve is mildly thickened. There is no evidence of mitral valve prolapse. There is no mitr al valve stenosis. Doppler and Color-flow revealed trace mitral regurgitation. TRICUSPID VALVE The tricuspid valve is normal in structure and function. Doppler and Color Flow revealed trace tricus pid regurgitation. There is no tricuspid valve prolapse or vegetation. There is no tricuspid valve st enosis. PULMONIC VALVE The pulmonic valve is not well visualized. Doppler and Color Flow revealed no pulmonic valvular regur gitation. There is no pulmonic valvular stenosis. GREAT VESSELS The aortic root is normal in size. The IVC is normal in size and collapses >50% with inspiration. PERICARDIAL EFFUSION There is no pleural effusion. There is no evidence of significant pericardial effusion. Critical Notification Critical Value: No <Conclusion> Left ventricle systolic function is moderately impaired. The Ejection Fraction is 30%. Transmitral Doppler flow pattern is Grade I-abnormal relaxation pattern. Trace to mild aortic regurgitation. Trace mitral regurgitation. Trace tricuspid regurgitation. There is no evidence of significant pericardial effusion. Signed by : Tim Pedro, Electronically Approved : 02/25/2018 13:09:35
[2018-02-25 13:30] LABS: AMPHETAMINE/METHAMPHETAMINE NEG (NEG); BARBITURATES NEG (NEG); BENZODIAZEPINES NEG (NEG); CANNABINOIDS POS (NEG); COCAINE NEG (NEG); METHADONE NEG (NEG); OPIATES POS (NEG); PHENCYCLIDINE NEG (NEG)
--- NOTE | 2018-02-25 13:30 | RAD ---
Renal ultrasound, 02/25/2018: HISTORY: Acute renal insufficiency The right kidney measures 10.4 cm in length while the left kidney measures 10.8 cm. There is no evidence of hydronephrosis or a renal mass. The renal parenchymal echogenicity is within normal limits. Limited views of urinary bladder are unremarkable. IMPRESSION: No significant renal abnormality is detected. Electronically signed by: Erasto Cortes MD (02/25/2018 1:27 PM) [facility]
[2018-02-25] MEDS: CARVEDILOL 12.5 MG TABLET. PO SCH (16:49)
[2018-02-26] VITALS (28 sets, daily range): BP systolic 97–188; BP diastolic 66–124
[2018-02-26 04:24] LABS: BASO # 0.1 x10^3/uL (0.0-0.2); BASO % 1 % (0-3); EOS # 0.2 x10^3/uL (0.0-0.7); EOS % 2 % (0-3); HEMATOCRIT 43.9 % (39.0-53.0); HEMOGLOBIN 14.7 g/dL (13.0-17.5); LYMPH % 21 % (24-48); MEAN CORPUSCULAR HEMOGLOBIN 30 pg (25-35); MEAN CORPUSCULAR HGB CONC 33 g/dL (31-37); MEAN CORPUSCULAR VOLUME 89 fL (79-100); MONO # 0.7 x10^3/uL (0.0-1.1); MONO % 7 % (0-9); NEUT # 6.6 x10^3uL (1.8-7.7); NEUT % 69 % (31-73); PLATELET COUNT 213 x10^3/uL (140-400); RED BLOOD COUNT 4.94 x10^6/uL (4.30-5.70); RED CELL DISTRIBUTION WIDTH 13.9 % (11.5-14.5); WHITE BLOOD COUNT 9.5 x10^3/uL (4.0-11.0)
[2018-02-26 04:43] LABS: CALCIUM 9.3 mg/dL (8.5-10.1); CREATININE 1.7 mg/dL (0.7-1.3)
[2018-02-26 04:51] LABS: CHOLESTEROL/HDL RATIO 5.9; POTASSIUM 2.7 mmol/L (3.5-5.1)
[2018-02-26] MEDS: POTASSIUM CHLORIDE 10MEQ 100 ML IV SCH ×4 (07:10→14:58)
[2018-02-26] MEDS: CARVEDILOL 12.5 MG TABLET. PO SCH ×2 (07:16→16:25)
[2018-02-26] MEDS: FOLIC ACID 1 MG TABLET. PO SCH (07:18)
[2018-02-26] MEDS: amLODIPine BESYLATE 10 MG TABLET PO SCH (07:18)
[2018-02-26] MEDS: THIAMINE 100 MG TABLET. PO SCH (07:18)
[2018-02-26] MEDS: ASPIRIN ENTERIC COATED 81 MG TABLET.DR. PO SCH (07:18)
[2018-02-26] MEDS ORDERED: REGADENOSON 0.4 MG/5 ML DISP.SYRIN. IV ONE (08:15)
[2018-02-26] MEDS ORDERED: ISOSORBIDE MONONITRATE ER 30 MG TAB.ER.24H PO SCH (09:30)
--- NOTE | 2018-02-26 10:03 | PDOC ---
PROGRESS NOTES Chief Complaint Chief Complaint Assessment/Plan Assessment/Plan systolic CHF exacerbation EF 30% , unstable angina vs. NSTEMI MARTINA, vasomotor vs, CKD3, suspect renal hypoperfusion tobaccoism alcohol abuse drug abuse with marijuana HTN urgency hypokalemia noncompliance hyperlipidemia hyperglycemia plan: a1c nephrology consult coreg bid 12.5 mg po station rx replace k card following tsh, t3, t4, lipid panel noted cycLE CE, first trop is high, demand ischemia or recent RI ABnormal EKG with ST depression NICARDIPINE DRIP ICU,monitoring FA , VITB1, Ativan prn lovenox bid echo ef 30% US renal accuchecks stress test today Vitals Vitals Vital Signs Date Time Temp Pulse Resp B/P (MAP) Pulse Ox O2 Delivery O2 Flow Rate FiO2 02/26/18 08:07 Room Air 02/26/18 07:57 97.6 90 25 174/117 (136) 97.6 02/26/18 07:00 98 Physical Exam General: Alert, Oriented X3, Cooperative, No acute distress Heart: Regular rate, Normal S1, Normal S2, No murmurs Lungs: Clear Abdomen: Soft Extremities: No cyanosis, No edema, Normal pulses Skin: No rashes, No significant lesion Labs LABS Renal ultrasound, 02/25/2018: HISTORY: Acute renal insufficiency The right kidney measures 10.4 cm in length while the left kidney measures 10.8 cm. There is no evidence of hydronephrosis or a renal mass. The renal parenchymal echogenicity is within normal limits. Limited views of urinary bladder are unremarkable. IMPRESSION: No significant renal abnormality is detected. Electronically signed by: Erasto Cortes MD (02/25/2018 1:27 PM) [facility] DICTATED and SIGNED BY: ERASTO CORTES MD DATE: 02/25/18 1323 Laboratory Tests Test 02/25/18 11:00 02/25/18 12:30 02/25/18 13:00 02/25/18 18:40 Nasal Screen MRSA (PCR) Negative (Negative) Urine Opiates Screen Pos (NEG) Urine Methadone Screen Neg (NEG) Urine Barbiturates Neg (NEG) Urine Phencyclidine Screen Neg (NEG) Urine Amphetamine/Methamphetamine Neg (NEG) Urine Benzodiazepines Screen Neg (NEG) Urine Cocaine Screen Neg (NEG) Urine Cannabinoids Screen Pos (NEG) Urine Ethyl Alcohol Neg (NEG) Creatine Kinase 185 U/L (39-308) Creatine Kinase MB (Mass) 1.9 ng/mL (0.0-3.6) Creatine Kinase MB Relative Index 1.0 % (0-4) Troponin I Quantitative 0.113 ng/mL (0.000-0.055) 0.130 ng/mL (0.000-0.055) Test 02/26/18 04:05 White Blood Count 9.5 x10^3/uL (4.0-11.0) Red Blood Count 4.94 x10^6/uL (4.30-5.70) Hemoglobin 14.7 g/dL (13.0-17.5) Hematocrit 43.9 % (39.0-53.0) Mean Corpuscular Volume 89 fL (79-100) Mean Corpuscular Hemoglobin 30 pg (25-35) Mean Corpuscular Hemoglobin Concent 33 g/dL (31-37) Red Cell Distribution Width 13.9 % (11.5-14.5) Platelet Count 213 x10^3/uL (140-400) Neutrophils (%) (Auto) 69 % (31-73) Lymphocytes (%) (Auto) 21 % (24-48) Monocytes (%) (Auto) 7 % (0-9) Eosinophils (%) (Auto) 2 % (0-3) Basophils (%) (Auto) 1 % (0-3) Neutrophils # (Auto) 6.6 x10^3uL (1.8-7.7) Lymphocytes # (Auto) 2.0 x10^3/uL (1.0-4.8) Monocytes # (Auto) 0.7 x10^3/uL (0.0-1.1) Eosinophils # (Auto) 0.2 x10^3/uL (0.0-0.7) Basophils # (Auto) 0.1 x10^3/uL (0.0-0.2) Sodium Level 135 mmol/L (136-145) Potassium Level 2.7 mmol/L (3.5-5.1) Chloride Level 97 mmol/L (98-107) Carbon Dioxide Level 30 mmol/L (21-32) Anion Gap 8 (6-14) Blood Urea Nitrogen 18 mg/dL (8-26) Creatinine 1.7 mg/dL (0.7-1.3) Estimated GFR (Cockcroft-Gault) 54.0 Glucose Level 138 mg/dL (70-99) Calcium Level 9.3 mg/dL (8.5-10.1) Triglycerides Level 262 mg/dL (0-150) Cholesterol Level 252 mg/dL (0-200) LDL Cholesterol, Calculated 157 mg/dL (0-100) VLDL Cholesterol, Calculated 52 mg/dL (0-40) Non-HDL Cholesterol Calculated 209 mg/dL (0-129) HDL Cholesterol 43 mg/dL (40-60) Cholesterol/HDL Ratio 5.9 Assessment and Plan Assessmemt and Plan Problems Medical Problems: (1) Chest pain Status: Acute (2) Hypertensive emergency Status: Acute (3) Hypokalemia Status: Acute (4) Renal insufficiency Status: Acute MITRAL VALVE The mitral valve is mildly thickened. There is no evidence of mitral valve prolapse. There is no mitral valve stenosis. Doppler and Color-flow revealed trace mitral regurgitation. TRICUSPID VALVE The tricuspid valve is normal in structure and function. Doppler and Color Flow revealed trace tricuspid regurgitation. There is no tricuspid valve prolapse or vegetation. There is no tricuspid valve stenosis. PULMONIC VALVE The pulmonic valve is not well visualized. Doppler and Color Flow revealed no pulmonic valvular regurgitation. There is no pulmonic valvular stenosis. GREAT VESSELS The aortic root is normal in size. The IVC is normal in size and collapses >50% with inspiration. PERICARDIAL EFFUSION There is no pleural effusion. There is no evidence of significant pericardial effusion. Critical Notification Critical Value: No <Conclusion> Left ventricle systolic function is moderately impaired. The Ejection Fraction is 30%. Transmitral Doppler flow pattern is Grade I-abnormal relaxation pattern. Trace to mild aortic regurgitation. Trace mitral regurgitation. Trace tricuspid regurgitation. There is no evidence of significant pericardial effusion. Signed by : Tim Pedro, Electronically Approved : 02/25/2018 13:09:35 32 min cc time Comment Review of Relevant I have reviewed the following items ketty (where applicable) has been applied. Labs Laboratory Tests Test 02/25/18 07:00 02/25/18 11:00 02/25/18 12:30 02/25/18 13:00 White Blood Count 8.8 x10^3/uL (4.0-11.0) Red Blood Count 4.81 x10^6/uL (4.30-5.70) Hemoglobin 14.2 g/dL (13.0-17.5) Hematocrit 42.3 % (39.0-53.0) Mean Corpuscular Volume 88 fL (79-100) Mean Corpuscular Hemoglobin 30 pg (25-35) Mean Corpuscular Hemoglobin Concent 34 g/dL (31-37) Red Cell Distribution Width 13.8 % (11.5-14.5) Platelet Count 213 x10^3/uL (140-400) Neutrophils (%) (Auto) 70 % (31-73) Lymphocytes (%) (Auto) 20 % (24-48) Monocytes (%) (Auto) 8 % (0-9) Eosinophils (%) (Auto) 1 % (0-3) Basophils (%) (Auto) 1 % (0-3) Neutrophils # (Auto) 6.1 x10^3uL (1.8-7.7) Lymphocytes # (Auto) 1.8 x10^3/uL (1.0-4.8) Monocytes # (Auto) 0.7 x10^3/uL (0.0-1.1) Eosinophils # (Auto) 0.1 x10^3/uL (0.0-0.7) Basophils # (Auto) 0.1 x10^3/uL (0.0-0.2) Sodium Level 129 mmol/L (136-145) Potassium Level 2.7 mmol/L (3.5-5.1) Chloride Level 92 mmol/L (98-107) Carbon Dioxide Level 31 mmol/L (21-32) Anion Gap 6 (6-14) Blood Urea Nitrogen 18 mg/dL (8-26) Creatinine 1.9 mg/dL (0.7-1.3) Estimated GFR (Cockcroft-Gault) 47.5 BUN/Creatinine Ratio 9 (6-20) Glucose Level 139 mg/dL (70-99) Calcium Level 10.5 mg/dL (8.5-10.1) Magnesium Level 2.2 mg/dL (1.8-2.4) Total Bilirubin 1.0 mg/dL (0.2-1.0) Aspartate Amino Transf (AST/SGOT) 31 U/L (15-37) Alanine Aminotransferase (ALT/SGPT) 25 U/L (16-63) Alkaline Phosphatase 86 U/L (46-116) Creatine Kinase 237 U/L (39-308) 185 U/L (39-308) Creatine Kinase MB (Mass) 2.1 ng/mL (0.0-3.6) 1.9 ng/mL (0.0-3.6) Creatine Kinase MB Relative Index 0.9 % (0-4) 1.0 % (0-4) Troponin I Quantitative 0.141 ng/mL (0.000-0.055) 0.113 ng/mL (0.000-0.055) TR-Vpc-V-Type Natriuretic Peptide 9389 pg/mL (0-124) Total Protein 8.4 g/dL (6.4-8.2) Albumin 3.9 g/dL (3.4-5.0) Albumin/Globulin Ratio 0.9 (1.0-1.7) Thyroid Stimulating Hormone (TSH) 5.573 uIU/mL (0.358-3.74) Free Thyroxine 1.25 ng/dL (0.76-1.46) Free Triiodothyronine (T3) pg/mL 4.10 pg/mL (2.18-3.98) Nasal Screen MRSA (PCR) Negative (Negative) Urine Opiates Screen Pos (NEG) Urine Methadone Screen Neg (NEG) Urine Barbiturates Neg (NEG) Urine Phencyclidine Screen Neg (NEG) Urine Amphetamine/Methamphetamine Neg (NEG) Urine Benzodiazepines Screen Neg (NEG) Urine Cocaine Screen Neg (NEG) Urine Cannabinoids Screen Pos (NEG) Urine Ethyl Alcohol Neg (NEG) Test 02/25/18 18:40 02/26/18 04:05 Troponin I Quantitative 0.130 ng/mL (0.000-0.055) White Blood Count 9.5 x10^3/uL (4.0-11.0) Red Blood Count 4.94 x10^6/uL (4.30-5.70) Hemoglobin 14.7 g/dL (13.0-17.5) Hematocrit 43.9 % (39.0-53.0) Mean Corpuscular Volume 89 fL (79-100) Mean Corpuscular Hemoglobin 30 pg (25-35) Mean Corpuscular Hemoglobin Concent 33 g/dL (31-37) Red Cell Distribution Width 13.9 % (11.5-14.5) Platelet Count 213 x10^3/uL (140-400) Neutrophils (%) (Auto) 69 % (31-73) Lymphocytes (%) (Auto) 21 % (24-48) Monocytes (%) (Auto) 7 % (0-9) Eosinophils (%) (Auto) 2 % (0-3) Basophils (%) (Auto) 1 % (0-3) Neutrophils # (Auto) 6.6 x10^3uL (1.8-7.7) Lymphocytes # (Auto) 2.0 x10^3/uL (1.0-4.8) Monocytes # (Auto) 0.7 x10^3/uL (0.0-1.1) Eosinophils # (Auto) 0.2 x10^3/uL (0.0-0.7) Basophils # (Auto) 0.1 x10^3/uL (0.0-0.2) Sodium Level 135 mmol/L (136-145) Potassium Level 2.7 mmol/L (3.5-5.1) Chloride Level 97 mmol/L (98-107) Carbon Dioxide Level 30 mmol/L (21-32) Anion Gap 8 (6-14) Blood Urea Nitrogen 18 mg/dL (8-26) Creatinine 1.7 mg/dL (0.7-1.3) Estimated GFR (Cockcroft-Gault) 54.0 Glucose Level 138 mg/dL (70-99) Calcium Level 9.3 mg/dL (8.5-10.1) Triglycerides Level 262 mg/dL (0-150) Cholesterol Level 252 mg/dL (0-200) LDL Cholesterol, Calculated 157 mg/dL (0-100) VLDL Cholesterol, Calculated 52 mg/dL (0-40) Non-HDL Cholesterol Calculated 209 mg/dL (0-129) HDL Cholesterol 43 mg/dL (40-60) Cholesterol/HDL Ratio 5.9 Laboratory Tests Test 02/25/18 11:00 02/25/18 12:30 02/25/18 13:00 02/25/18 18:40 Nasal Screen MRSA (PCR) Negative (Negative) Urine Opiates Screen Pos (NEG) Urine Methadone Screen Neg (NEG) Urine Barbiturates Neg (NEG) Urine Phencyclidine Screen Neg (NEG) Urine Amphetamine/Methamphetamine Neg (NEG) Urine Benzodiazepines Screen Neg (NEG) Urine Cocaine Screen Neg (NEG) Urine Cannabinoids Screen Pos (NEG) Urine Ethyl Alcohol Neg (NEG) Creatine Kinase 185 U/L (39-308) Creatine Kinase MB (Mass) 1.9 ng/mL (0.0-3.6) Creatine Kinase MB Relative Index 1.0 % (0-4) Troponin I Quantitative 0.113 ng/mL (0.000-0.055) 0.130 ng/mL (0.000-0.055) Test 02/26/18 04:05 White Blood Count 9.5 x10^3/uL (4.0-11.0) Red Blood Count 4.94 x10^6/uL (4.30-5.70) Hemoglobin 14.7 g/dL (13.0-17.5) Hematocrit 43.9 % (39.0-53.0) Mean Corpuscular Volume 89 fL (79-100) Mean Corpuscular Hemoglobin 30 pg (25-35) Mean Corpuscular Hemoglobin Concent 33 g/dL (31-37) Red Cell Distribution Width 13.9 % (11.5-14.5) Platelet Count 213 x10^3/uL (140-400) Neutrophils (%) (Auto) 69 % (31-73) Lymphocytes (%) (Auto) 21 % (24-48) Monocytes (%) (Auto) 7 % (0-9) Eosinophils (%) (Auto) 2 % (0-3) Basophils (%) (Auto) 1 % (0-3) Neutrophils # (Auto) 6.6 x10^3uL (1.8-7.7) Lymphocytes # (Auto) 2.0 x10^3/uL (1.0-4.8) Monocytes # (Auto) 0.7 x10^3/uL (0.0-1.1) Eosinophils # (Auto) 0.2 x10^3/uL (0.0-0.7) Basophils # (Auto) 0.1 x10^3/uL (0.0-0.2) Sodium Level 135 mmol/L (136-145) Potassium Level 2.7 mmol/L (3.5-5.1) Chloride Level 97 mmol/L (98-107) Carbon Dioxide Level 30 mmol/L (21-32) Anion Gap 8 (6-14) Blood Urea Nitrogen 18 mg/dL (8-26) Creatinine 1.7 mg/dL (0.7-1.3) Estimated GFR (Cockcroft-Gault) 54.0 Glucose Level 138 mg/dL (70-99) Calcium Level 9.3 mg/dL (8.5-10.1) Triglycerides Level 262 mg/dL (0-150) Cholesterol Level 252 mg/dL (0-200) LDL Cholesterol, Calculated 157 mg/dL (0-100) VLDL Cholesterol, Calculated 52 mg/dL (0-40) Non-HDL Cholesterol Calculated 209 mg/dL (0-129) HDL Cholesterol 43 mg/dL (40-60) Cholesterol/HDL Ratio 5.9 Medications Current Medications Aspirin (Children'S Aspirin) 324 mg 1X ONCE PO Last administered on 02/25/18at 07:14; Start 02/25/18 at 07:00; Stop 02/25/18 at 07:04; Status DC Morphine Sulfate (Morphine Sulfate) 4 mg 1X ONCE IV Last administered on at 07:15; Start 02/25/18 at 07:00; Stop 02/25/18 at 07:04; Status DC Nitroglycerin/ Dextrose 250 ml @ 3 mls/hr 1X ONCE IV Last administered on 02/25at 07:14; Start 02/25/18 at 07:00; Stop 02/28/18 at 18:19 Labetalol HCl (Normodyne Iv Push) 20 mg 1X ONCE IVP Last administered on at 07:12; Start 02/25/18 at 07:00; Stop 02/25/18 at 07:04; Status DC Potassium Chloride (Klor-Con) 40 meq 1X ONCE PO Last administered on at 07:49; Start 02/25/18 at 07:45; Stop 02/25/18 at 07:46; Status DC Potassium Chloride/Water 50 ml @ 50 mls/hr 1X ONCE IV ; Start 02/25/18 at 07:45 ; Stop 02/25/18 at 08:44; Status UNV Potassium Chloride/Water 100 ml @ 100 mls/hr Q1H IV Last administered on at 09:17; Start 02/25/18 at 08:00; Stop 02/25/18 at 09:59; Status DC Furosemide (Lasix) 40 mg 1X ONCE IVP Last administered on 02/25/18at 07:57; Start 02/25/18 at 08:00; Stop 02/25/18 at 08:01; Status DC Acetaminophen/ Hydrocodone Bitart (Lortab 5/325) 1 tab PRN Q6HRS PRN PO SEVERE PAIN; Start 02/25/18 at 08:45 Amlodipine Besylate (Norvasc) 10 mg DAILY PO Last administered on 02/26/18at 07: 18; Start 02/25/18 at 09:30 Acetaminophen (Tylenol) 650 mg PRN Q6HRS PRN PO FEVER; Start 02/25/18 at 08:45 Ondansetron HCl (Zofran) 4 mg PRN Q6HRS PRN IV NAUSEA/VOMITING; Start 02/25/18 at 08:45 Morphine Sulfate (Morphine Sulfate) 2 mg PRN Q2HR PRN IV MODERATE TO SEVERE PAIN; Start 02/25/18 at 08:45 Tramadol HCl (Ultram) 50 mg PRN Q6HRS PRN PO MILD TO MODERATE PAIN; Start 02/25 at 08:45 Docusate Sodium (Colace) 100 mg PRN DAILY PRN PO CONSTIPATION; Start 02/25/18 at 08:45 Labetalol HCl (Normodyne Iv Push) 20 mg PRN Q2HR PRN IVP HYPERTENSION, SEE COMMENTS Last administered on 02/25/18at 10:29; Start 02/25/18 at 08:45 Potassium Chloride (Klor-Con) 40 meq 1X ONCE PO Last administered on at 10:03; Start 02/25/18 at 09:30; Stop 02/25/18 at 09:31; Status DC Nicardipine HCl 50 mg/Sodium Chloride 270 ml @ 0 mls/hr CONT PRN IV SEE I/O RECORD Last administered on 02/26/18at 00:29; Start 02/25/18 at 10:45 Aspirin (Ecotrin) 81 mg [id number] PO Last administered on 02/26/18at 07:18; Start 02/25/18 at 12:00 Enoxaparin Sodium (Lovenox 80mg Syringe) 80 mg Q12HR SQ Last administered on at 07:19; Start 02/25/18 at 12:00 Folic Acid (Folic Acid) 1 mg DAILY PO Last administered on 02/26/18at 07:18; Start 02/25/18 at 12:00 Thiamine Mononitrate (Vitamin B-1) 100 mg DAILY PO Last administered on at 07:18; Start 02/25/18 at 12:00 Lorazepam (Ativan) 2 mg PRN Q4HRS PRN IV ANXIETY / AGITATION; Start 02/25/18 at 11:45 Carvedilol (Coreg) 12.5 mg BIDWMEALS PO Last administered on 02/26/18at 07:16; Start 02/25/18 at 17:00 Potassium Chloride/Water 100 ml @ 100 mls/hr Q1H IV Last administered on at 08:19; Start 02/26/18 at 07:15; Stop 02/26/18 at 11:14 Info (Anti-Coagulation Monitoring By Pharmacy) 1 each PRN DAILY PRN MC SEE COMMENTS; Start 02/26/18 at 07:30 Regadenoson (Lexiscan) 0.4 mg 1X ONCE IV Last administered on 02/26/18at 09:54 ; Start 02/26/18 at 08:15; Stop 02/26/18 at 08:16; Status DC Atorvastatin Calcium (Lipitor) 20 mg QHS PO ; Start 02/26/18 at 21:00 Isosorbide Mononitrate (Imdur) 30 mg DAILY PO ; Start 02/26/18 at 09:30 Active Scripts Active Ibuprofen 800 Mg Tablet 800 Mg PO PRN Q6HRS PRN Orrick 5-325 Tablet (Acetaminophen/Hydrocodone Bitart) 1 Each Tablet 1-2 Tab PO Q4-6HRS PRN Cipro (Ciprofloxacin Hcl) 500 Mg Tablet 1 Tab PO BID Vitals/I & O Vital Sign - Last 24 Hours 02/25/18 02/25/18 02/25/18 02/25/18 10:03 10:15 10:29 10:30 Pulse 82 87 93 72 Resp 20 20 B/P (MAP) 189/130 190/92 (124) 211/140 188/105 (132) Pulse Ox 96 96 O2 Delivery Room Air Room Air 02/25/18 02/25/18 02/25/18 02/25/18 10:45 10:55 11:00 11:30 Pulse 80 83 89 Resp 20 20 20 B/P (MAP) 180/83 (115) 183/69 (107) 172/80 (110) Pulse Ox 97 96 96 O2 Delivery Room Air Room Air Room Air Room Air 02/25/18 02/25/18 02/25/18 02/25/18 12:00 12:00 13:00 14:00 Temp 98.4 98.4 Pulse 79 89 87 Resp 20 20 20 B/P (MAP) 149/82 (104) 152/80 (104) 149/90 (109) Pulse Ox 96 96 96 O2 Delivery Room Air Room Air Room Air Room Air 02/25/18 02/25/18 02/25/18 02/25/18 15:00 16:00 16:00 16:49 Temp 98.7 98.7 Pulse 96 98 98 Resp 20 20 B/P (MAP) 168/100 (122) 166/100 (122) 166/100 Pulse Ox 96 96 O2 Delivery Room Air Room Air Room Air 02/25/18 02/25/18 02/25/18 02/25/18 17:00 18:00 19:00 19:58 Pulse 96 96 96 Resp 20 20 18 B/P (MAP) 154/98 (116) 162/100 (120) 166/101 (122) Pulse Ox 96 96 100 O2 Delivery Room Air Room Air Room Air Room Air 02/25/18 02/25/18 02/25/18 02/25/18 20:00 21:00 22:00 23:00 Temp 97.4 97.4 Pulse 100 92 88 88 Resp 20 22 18 18 B/P (MAP) 156/98 (117) 153/98 (116) 144/90 (108) 141/69 (93) Pulse Ox 100 100 98 98 O2 Delivery Room Air Room Air Room Air Room Air 02/25/18 02/26/18 02/26/18 02/26/18 23:15 00:00 00:00 01:00 Temp 98.2 98.2 Pulse 90 88 86 Resp 19 17 15 B/P (MAP) 143/101 (115) 153/101 (118) 164/109 (127) Pulse Ox 99 99 99 O2 Delivery Room Air Room Air Room Air Room Air 02/26/18 02/26/18 02/26/18 02/26/18 02:00 03:00 04:00 04:00 Temp 98.2 98.2 Pulse 85 82 90 Resp 16 15 17 B/P (MAP) 129/81 (97) 156/98 (117) 149/90 (109) Pulse Ox 98 99 99 O2 Delivery Room Air Room Air Room Air Room Air 02/26/18 02/26/18 02/26/18 02/26/18 05:00 06:00 07:00 07:16 Pulse 93 93 90 93 Resp 16 16 24 B/P (MAP) 140/80 (100) 169/93 (118) 160/91 (114) 160/91 Pulse Ox 98 98 98 O2 Delivery Room Air Room Air Room Air 02/26/18 02/26/18 02/26/18 07:18 07:57 08:07 Temp 97.6 97.6 Pulse 93 90 Resp 25 B/P (MAP) 160/91 174/117 (136) O2 Delivery Room Air Room Air Intake and Output 02/25/18 02/25/18 02/26/18 15:00 23:00 07:00 Intake Total 249.1 ml 830 ml 611 ml Output Total 900 ml 900 ml 900 ml Balance -650.9 ml -70 ml -289 ml MARIA ISABEL CORTEZ MD Feb 26, 2018 10:02
[2018-02-26] MEDS ORDERED: POTASSIUM CHLORIDE 20MEQ 50 ML IV SCH (10:15)
--- NOTE | 2018-02-26 10:20 | PDOC ---
ADEEL ZUNIGA TRACTOR TECHNICIAN 02/26/18 1020: CARDIO Progress Notes Date and Time Date of Service 02/26/2018 Time of Evaluation 0900 Subjective Subjective: No Chest Pain, No shortness of breath, No Palpitations, Other ( feels betterr today) Vitals Vitals Vital Signs Date Time Temp Pulse Resp B/P (MAP) Pulse Ox O2 Delivery O2 Flow Rate FiO2 02/26/18 08:07 Room Air 02/26/18 07:57 97.6 90 25 174/117 (136) 97.6 02/26/18 07:00 98 Weight Weight [ ] Input and Output Intake and Output Intake and Output 02/26/18 07:00 Intake Total 1690.1 ml Output Total 2700 ml Balance -1009.9 ml Intake Oral 1060 ml IV Total 630.1 ml Output Urine Total 2700 ml Laboratory Labs Laboratory Tests Test 02/25/18 11:00 02/25/18 12:30 02/25/18 13:00 02/25/18 18:40 Nasal Screen MRSA (PCR) Negative (Negative) Urine Opiates Screen Pos (NEG) Urine Methadone Screen Neg (NEG) Urine Barbiturates Neg (NEG) Urine Phencyclidine Screen Neg (NEG) Urine Amphetamine/Methamphetamine Neg (NEG) Urine Benzodiazepines Screen Neg (NEG) Urine Cocaine Screen Neg (NEG) Urine Cannabinoids Screen Pos (NEG) Urine Ethyl Alcohol Neg (NEG) Creatine Kinase 185 U/L (39-308) Creatine Kinase MB (Mass) 1.9 ng/mL (0.0-3.6) Creatine Kinase MB Relative Index 1.0 % (0-4) Troponin I Quantitative 0.113 ng/mL (0.000-0.055) 0.130 ng/mL (0.000-0.055) Test 02/26/18 04:05 White Blood Count 9.5 x10^3/uL (4.0-11.0) Red Blood Count 4.94 x10^6/uL (4.30-5.70) Hemoglobin 14.7 g/dL (13.0-17.5) Hematocrit 43.9 % (39.0-53.0) Mean Corpuscular Volume 89 fL (79-100) Mean Corpuscular Hemoglobin 30 pg (25-35) Mean Corpuscular Hemoglobin Concent 33 g/dL (31-37) Red Cell Distribution Width 13.9 % (11.5-14.5) Platelet Count 213 x10^3/uL (140-400) Neutrophils (%) (Auto) 69 % (31-73) Lymphocytes (%) (Auto) 21 % (24-48) Monocytes (%) (Auto) 7 % (0-9) Eosinophils (%) (Auto) 2 % (0-3) Basophils (%) (Auto) 1 % (0-3) Neutrophils # (Auto) 6.6 x10^3uL (1.8-7.7) Lymphocytes # (Auto) 2.0 x10^3/uL (1.0-4.8) Monocytes # (Auto) 0.7 x10^3/uL (0.0-1.1) Eosinophils # (Auto) 0.2 x10^3/uL (0.0-0.7) Basophils # (Auto) 0.1 x10^3/uL (0.0-0.2) Sodium Level 135 mmol/L (136-145) Potassium Level 2.7 mmol/L (3.5-5.1) Chloride Level 97 mmol/L (98-107) Carbon Dioxide Level 30 mmol/L (21-32) Anion Gap 8 (6-14) Blood Urea Nitrogen 18 mg/dL (8-26) Creatinine 1.7 mg/dL (0.7-1.3) Estimated GFR (Cockcroft-Gault) 54.0 Glucose Level 138 mg/dL (70-99) Calcium Level 9.3 mg/dL (8.5-10.1) Triglycerides Level 262 mg/dL (0-150) Cholesterol Level 252 mg/dL (0-200) LDL Cholesterol, Calculated 157 mg/dL (0-100) VLDL Cholesterol, Calculated 52 mg/dL (0-40) Non-HDL Cholesterol Calculated 209 mg/dL (0-129) HDL Cholesterol 43 mg/dL (40-60) Cholesterol/HDL Ratio 5.9 Physical Exam HEENT: Neck Supple W Full Motion Chest: Symmetric LUNGS: Clear to Auscultation Heart: S1S2, RRR (SR no ectopies) Abdomen: Soft N/T Extremities: No Edema, No Calf Tenderness Neurology: alert, oriented, follow commands Assessment Assessment 1. Accelerated HTN 2. NSTEMI: peaked trop at 0.14. likely demand mediated. CP free. 3. Cardiomyopathy: suspect NICM r/t uncontrolled HTN. EF 30% 4. Poly Substance abuse; +for opiates and marijuana and ETOH 5. MARTINA vs CKD: suspect ongoing CKD from chronic HTN with past Cr noted at 1.6/ proteinuria 6. Noncompliance 7. Secondary hyperthyroidism?: defer to PCP 8. Tobaccoism Recommendations 1. Titrate off cardene. Started on imdur, coreg, and norvasc and will uptitrate as warranted 2. SW referral to outpt clinics 3. Tailor meds to 4$ list. 4. ASA. statin, may use lovastatin 5. MPI today. 6. Smoking cessation, lifestyle modification REINIER LINN MD 02/26/18 1514: CARDIO Progress Notes Assessment Assessment Patient seen and examined. Agree with SPRAY DRY OPERATOR's assessment and plan. Lexiscan nuclear stress test did not show any significant ischemia Continue to titrate oral antihypertensives for better blood pressure control Plan medical management for nonischemic cardiomyopathy and repeat 2-D echo in 3 months ADEEL ZUNIGA APRN Feb 26, 2018 10:20 REINIER LINN MD Feb 26, 2018 15:14
[2018-02-26] MEDS: ANTI-COAG MONITOR BY PHARMACY. MC PRN (10:33)
[2018-02-26] MEDS ORDERED: FOLIC ACID 1 MG TABLET. PO SCH (11:00)
[2018-02-26] MEDS: LABETALOL 20 MG/4 ML DISP.SYRIN. IVP PRN ×2 (11:37→12:00)
--- NOTE | 2018-02-26 12:44 | RAD ---
MR#: [id number] Date of Study: 02/26/2018 Ordering Physician: JULIA ROGERS, Referring Physician: ISAAC MARX Tech: PHUONG Garrison, ARRT (R) (N) APPROVED REPORT Test Type: Pharmacological Stress Nurse/Tech: Sita Salazar R.N. Test Indications: chest pain, NSSTEMI, HTN Cardiac History: Hypertension , smoker Medications: See Electronic Medical Record Medical History: See Electronic Medical Record Resting ECG: NSR with inverted T waves Resting Heart Rate: 89 bpm Resting Blood Pressure: 154/108mmHg Pretest Chest Pain: No chest pain Nurse/Tech Notes S1S2, lungs sound clear Consent: The procedure was explained to the patient in lay terms. Informed consent was witnessed. Smith eout was entered into [employer]. History and Stress Test performed by Marie ReynagaN. Pharm. Details Pharmacologic stress testing was performed using 0.4mg per 5ml of regadenoson given intravenously ove r 7-10 seconds. Stress Symptoms sweating POST EXERCISE Reason for Termination: Infusion complete Target HR: 152 Max HR: 99 bpm Max Blood Pressure: 150/109mmHg Blood Pressure response to exercise: Normal blood pressure response during stress. Chest Pain: No. Arrhythmia: No. ST Change: Yes. t wave depression INTERPRETATION Stress EKG Conclusion: Baseline EKG - SR with LVH. No ischemic changes. Imaging Protocol IMAGE PROTOCOL: Rest Tc-99m/stress Tc-99m 1 day Rest: Stress: Viability: Radiopharm.Tc99m [id number] Sestamibi Xuwl78eOn 35.8mCi Img Date 02/26/2018 02/26/2018 Inj-Img [id number]. 60min. Rest Admin Site:IV - Left ForearmAdministrator:PHUONG Garrison, ARRT (R)(N) Stress Admin Site: IV - Left ForearmAdministrator: PHUONG Garrison, ARRT (R)(N) STRESS DATA End Diast. Vol.184.0mlLVEDV index HLM600.0ml End Syst. Vol.139.0mlLVESV index BSA76.0ml Myocardial Ehsu901.0gEject. Cfmaiazb75.0% Stress Scores Regional WT3.00Summed WT50.00 Regional WM2.00Summed WM50.00 The rest and stress images show normal perfusion, normal contraction and thickening. LV Perf. Quant 17 Seg. SSS1.00 17 Seg. SRS3.00 17 Seg. SDS0.00 Stress Defect Extent (% LAD)0.00Rest Defect Extent (% LAD)0.00Rev. Defect Extent (% LAD)0.00 Stress Defect Extent (% LCX) 0.00Rest Defect Extent (% LCX)26.30Rev. Defect Extent (% LCX)0.00 Stress Defect Extent (% RCA)0.00Rest Defect Extent (% RCA)0.00Rev. Defect Extent (% RCA)0.00 Stress Defect Extent (% MIKHAIL)0.00Rest Defect Extent (% MIKHAIL)4.60Rev. Defect Extent (% MIKHAIL)0.00 Other Information Quality:Average Risk Assessment: High Risk Conclusion 1. No evidence of stress induced EKG changes. Baseline EKG with SR and LVH 2. Normal perfusion at stress/rest. Subdiaphragmatic attenuation artifact noted. 3. Severe LV dysfunction. EF 25% 4. High risk for future CV events. Signed by : Antoine Fernandez, Electronically Approved : 02/26/2018 12:43:48
[2018-02-26] MEDS ORDERED: ISOSORBIDE MONONITRATE ER 30 MG TAB.ER.24H PO ONE (14:15)
[2018-02-26] MEDS ORDERED: hydrALAZINE 20 MG/ML VIAL. IVP ONE (16:15)
[2018-02-26] MEDS ORDERED: ATORVASTATIN CALCIUM 20 MG TABLET PO SCH (21:00)
[2018-02-26 23:46] LABS: BILIRUBIN,URINE NEGATIVE (NEG); CLARITY,URINE CLEAR; COLOR,URINE YELLOW; NITRITE,URINE POSITIVE (NEG); PH,URINE 6.5; PROTEIN,URINE NEGATIVE (NEG-TRACE)
[2018-02-26 23:53] LABS: BACTERIA,URINE MANY /HPF (0-FEW); RBC,URINE 0 /HPF (0-2); SQUAMOUS EPITHELIAL CELL,UR OCC /LPF
[2018-02-27] VITALS (18 sets, daily range): BP systolic 131–187; BP diastolic 85–121
[2018-02-27] MEDS: LABETALOL 20 MG/4 ML DISP.SYRIN. IVP PRN (00:28)
[2018-02-27 02:18] LABS: HEMOGLOBIN A1C 4.8 % (4.8-5.6)
[2018-02-27 07:14] LABS: ALBUMIN 3.5 g/dL (3.4-5.0); ALBUMIN/GLOBULIN RATIO 0.8 (1.0-1.7); CALCIUM 9.9 mg/dL (8.5-10.1); CREATININE 1.7 mg/dL (0.7-1.3); POTASSIUM 3.4 mmol/L (3.5-5.1); TOTAL PROTEIN 7.9 g/dL (6.4-8.2)
[2018-02-27 07:20] LABS: BASO # 0.1 x10^3/uL (0.0-0.2); BASO % 1 % (0-3); EOS # 0.1 x10^3/uL (0.0-0.7); EOS % 1 % (0-3); HEMATOCRIT 40.7 % (39.0-53.0); HEMOGLOBIN 13.6 g/dL (13.0-17.5); LYMPH # 1.9 x10^3/uL (1.0-4.8); LYMPH % 20 % (24-48); MEAN CORPUSCULAR HEMOGLOBIN 29 pg (25-35); MEAN CORPUSCULAR HGB CONC 34 g/dL (31-37); MEAN CORPUSCULAR VOLUME 88 fL (79-100); MONO # 0.8 x10^3/uL (0.0-1.1); MONO % 8 % (0-9); NEUT # 6.5 x10^3uL (1.8-7.7); NEUT % 70 % (31-73); PLATELET COUNT 241 x10^3/uL (140-400); RED BLOOD COUNT 4.63 x10^6/uL (4.30-5.70); RED CELL DISTRIBUTION WIDTH 13.8 % (11.5-14.5); WHITE BLOOD COUNT 9.3 x10^3/uL (4.0-11.0)
[2018-02-27] MEDS: ASPIRIN ENTERIC COATED 81 MG TABLET.DR. PO SCH (07:28)
[2018-02-27] MEDS: CARVEDILOL 12.5 MG TABLET. PO SCH ×2 (07:28→16:48)
[2018-02-27] MEDS: amLODIPine BESYLATE 10 MG TABLET PO SCH (07:29)
[2018-02-27] MEDS: THIAMINE 100 MG TABLET. PO SCH (07:29)
[2018-02-27] MEDS: FOLIC ACID 1 MG TABLET. PO SCH (07:29)
[2018-02-27] MEDS ORDERED: ISOSORBIDE MONONITRATE ER 30 MG TAB.ER.24H PO SCH (09:00)
--- NOTE | 2018-02-27 09:26 | PDOC ---
ADEEL ZUNIGA [employer] 02/27/18 0926: CARDIO Progress Notes Date and Time Date of Service 02/27/2018 Time of Evaluation 0910 Subjective Subjective: No Chest Pain, No shortness of breath, No Palpitations Vitals Vitals Vital Signs Date Time Temp Pulse Resp B/P (MAP) Pulse Ox O2 Delivery O2 Flow Rate FiO2 02/27/18 09:00 92 17 159/90 (113) 97 Room Air 02/27/18 08:00 98.4 98.4 Weight Weight [ ] Input and Output Intake and Output Intake and Output 02/27/18 07:00 Intake Total 1730.01 ml Output Total 1150 ml Balance 580.01 ml Intake Oral 1310 ml IV Total 420.01 ml Output Urine Total 1150 ml # Voids 4 # Bowel Movements 2 Laboratory Labs Laboratory Tests Test 02/26/18 16:45 02/26/18 23:15 02/27/18 06:35 Potassium Level 3.6 mmol/L (3.5-5.1) 3.4 mmol/L (3.5-5.1) Urine Collection Type Unknown Urine Color Yellow Urine Clarity Clear Urine pH 6.5 Urine Specific [place] 1.010 Urine Protein Negative mg/dL (NEG-TRACE) Urine Glucose (UA) Negative mg/dL (NEG) Urine Ketones (Stick) Negative mg/dL (NEG) Urine Blood Negative (NEG) Urine Nitrite Positive (NEG) Urine Bilirubin Negative (NEG) Urine Urobilinogen Dipstick 1.0 mg/dL (0.2 mg/dL) Urine Leukocyte Esterase Moderate (NEG) Urine RBC 0 /HPF (0-2) Urine WBC 11-20 /HPF (0-4) Urine Squamous Epithelial Cells Occ /LPF Urine Bacteria Many /HPF (0-FEW) White Blood Count 9.3 x10^3/uL (4.0-11.0) Red Blood Count 4.63 x10^6/uL (4.30-5.70) Hemoglobin 13.6 g/dL (13.0-17.5) Hematocrit 40.7 % (39.0-53.0) Mean Corpuscular Volume 88 fL (79-100) Mean Corpuscular Hemoglobin 29 pg (25-35) Mean Corpuscular Hemoglobin Concent 34 g/dL (31-37) Red Cell Distribution Width 13.8 % (11.5-14.5) Platelet Count 241 x10^3/uL (140-400) Neutrophils (%) (Auto) 70 % (31-73) Lymphocytes (%) (Auto) 20 % (24-48) Monocytes (%) (Auto) 8 % (0-9) Eosinophils (%) (Auto) 1 % (0-3) Basophils (%) (Auto) 1 % (0-3) Neutrophils # (Auto) 6.5 x10^3uL (1.8-7.7) Lymphocytes # (Auto) 1.9 x10^3/uL (1.0-4.8) Monocytes # (Auto) 0.8 x10^3/uL (0.0-1.1) Eosinophils # (Auto) 0.1 x10^3/uL (0.0-0.7) Basophils # (Auto) 0.1 x10^3/uL (0.0-0.2) Sodium Level 135 mmol/L (136-145) Chloride Level 100 mmol/L (98-107) Carbon Dioxide Level 28 mmol/L (21-32) Anion Gap 7 (6-14) Blood Urea Nitrogen 18 mg/dL (8-26) Creatinine 1.7 mg/dL (0.7-1.3) Estimated GFR (Cockcroft-Gault) 54.0 BUN/Creatinine Ratio 11 (6-20) Glucose Level 124 mg/dL (70-99) Calcium Level 9.9 mg/dL (8.5-10.1) Total Bilirubin 1.0 mg/dL (0.2-1.0) Aspartate Amino Transf (AST/SGOT) 24 U/L (15-37) Alanine Aminotransferase (ALT/SGPT) 26 U/L (16-63) Alkaline Phosphatase 78 U/L (46-116) Total Protein 7.9 g/dL (6.4-8.2) Albumin 3.5 g/dL (3.4-5.0) Albumin/Globulin Ratio 0.8 (1.0-1.7) Physical Exam HEENT: Neck Supple W Full Motion Chest: Symmetric LUNGS: Clear to Auscultation Heart: S1S2, RRR (SR no ectopies) Abdomen: Soft N/T Extremities: No Edema, No Calf Tenderness Neurology: alert, oriented, follow commands Assessment Assessment 1. Accelerated HTN: improving 2. NSTEMI: peaked trop at 0.14. likely demand mediated. CP free.MPI with no reversible defects 3. NICM: due to chronic HTN and failed treatment due to noncomplaince. 4. Poly Substance abuse; +for opiates and marijuana and ETOH 5. Suspect CKD3 6. Noncompliance 7. Secondary hyperthyroidism?: defer to PCP 8. Tobaccoism Recommendations 1. Continue current BP regimen. Home BP monitoring. Renal duplex today 2. SW referral to outpt clinics 3. Tailor meds to 4$ list. 4. ASA. statin, may use lovastatin 5. Smoking cessation, lifestyle modification 6. Limited modification options in pursuing further treatments due to financial constraints. 7. Recommend follow up with outpt PCP in 1 to 2 weeks for BP checks. 8. Anticipate DC this afternoon. REINIER LINN MD 02/28/18 0734: CARDIO Progress Notes Assessment Assessment Patient seen and examined 02/27/18 (late entry). Agree with BILL CLERK's assessment and plan. Blood pressure better controlled Lexiscan nuclear stress test did not show any significant ischemia Continue medical management for nonischemic cardiomyopathy Plan for outpatient 2-D echo in 3 months to monitor LV function Okay for discharge from cardiac standpoint and follow-up with our office in 1 month ADEEL ZUNIGA APRN Feb 27, 2018 09:26 REINIER LINN MD Feb 28, 2018 07:34
--- NOTE | 2018-02-27 09:32 | RAD ---
MR#: [id number] Date of Study: 02/27/2018 Ordering Physician: ADEEL ZUNIGA, Referring Physician: GERSON AVERY Tech: Doug Rollins MBA, RDMS, RVT, RDCS, RTR APPROVED REPORT Patient Location: IN-PATIENT Indications Uncontrolled HTN Renal Artery Doppler Right Renal Artery Left Renal Arter y Proximal 91.0/28.0 cm/secProximal 60.0/18.0 cm/sec Mid 92.0/31.0 cm/secMid 48.0/17.0 cm/sec Distal 69.0/21.0 cm/secDistal 43.0/17.0 cm/sec Renal/Aorta Ratio 0.84Renal/Aorta Ratio 0.55 Prox. Resistive Index 0.69Prox. Resistive Index 0.70 Mid Resistive Index 0.67Mid Resistive Index 0.64 Distal Resistive Index 0.69Distal Resistive Index 0.60 Rt. Segmental A. 42.0/15.0 cm/secLt. Segmental A. 33.0/15.0 cm/sec Renal Measurements RightLeft Kidney Aevbqo28.1 cm cmKidney Santbb15.1 cm cm Right Additional FindingsLeft Additional Findings Aortic Duplex A/PTransverseLongitudinal Proximal Aorta 1.9cm Mid Aorta 2.0cm Distal Aorta 1.5cm Aortic Doppler VelocityWaveform Proximal Aorta 109.0 cm/sec Findings Grayscale images of the bilateral kidneys demonstrate medical renal disease. Spectral waveforms and c olor Doppler of the aorta and bilateral renal arteries do not demonstrate any significant velocity ac celeration or deceleration. Overall renal to aortic ratios are within normal limits. Velocities are a lso grossly within normal limits. Critical Notification Critical Value: No <Conclusion> No significant renal artery stenosis identified. Technically difficult study. Signed by : Antoine Fernandez, Electronically Approved : 02/27/2018 09:32:00
--- NOTE | 2018-02-27 10:14 | PDOC2 ---
CONSULT Date of Consult Date of Consult DATE: 02/27/18 TIME: 10:08 Reason for Consult Reason for Consult: RENAL FAILURE Referring Physician Referring Physician: GENA Identification/Chief Complaint Chief Complaint CHEST PAIN Source Source: Chart review, Patient History of Present Illness Reason for Visit: THIS IS A 43 YR OLD WITH CHEST PAIN. ON INITIAL EVALUATION BP OF 250 SYSTOLIC AND DBP OVER 100. IMAGING STUDIES NEG. CR OF 1.9. CR WAS 1.6 IN 2016. RENAL SONO DONE WAS NEG. NOT SEEING ANYONE REGULARLY. NOT SURE OF HIS HOME MEDS. NO HX OF ANY KIDNEY OR BLADDER PROBLEMS REPORTED. NO OTHER HX Past Medical History Cardiovascular: HTN Renal/: Chronic renal insuff Past Surgical History Past Surgical History: No pertinent history Family History Family History: Hypertension, Stroke Social History 1 pack per day ALCOHOL: heavy (6 pack per day) Drugs: Marijuana Current Problem List Problem List Problems Medical Problems: (1) Chest pain Status: Acute (2) Hypertensive emergency Status: Acute (3) Hypokalemia Status: Acute (4) Renal insufficiency Status: Acute Current Medications Current Medications Current Medications Aspirin (Children'S Aspirin) 324 mg 1X ONCE PO Last administered on 02/25/18at 07:14; Start 02/25/18 at 07:00; Stop 02/25/18 at 07:04; Status DC Morphine Sulfate (Morphine Sulfate) 4 mg 1X ONCE IV Last administered on at 07:15; Start 02/25/18 at 07:00; Stop 02/25/18 at 07:04; Status DC Nitroglycerin/ Dextrose 250 ml @ 3 mls/hr 1X ONCE IV Last administered on 02/25at 07:14; Start 02/25/18 at 07:00; Stop 02/28/18 at 18:19 Labetalol HCl (Normodyne Iv Push) 20 mg 1X ONCE IVP Last administered on at 07:12; Start 02/25/18 at 07:00; Stop 02/25/18 at 07:04; Status DC Potassium Chloride (Klor-Con) 40 meq 1X ONCE PO Last administered on at 07:49; Start 02/25/18 at 07:45; Stop 02/25/18 at 07:46; Status DC Potassium Chloride/Water 50 ml @ 50 mls/hr 1X ONCE IV ; Start 02/25/18 at 07:45 ; Stop 02/25/18 at 08:44; Status UNV Potassium Chloride/Water 100 ml @ 100 mls/hr Q1H IV Last administered on at 09:17; Start 02/25/18 at 08:00; Stop 02/25/18 at 09:59; Status DC Furosemide (Lasix) 40 mg 1X ONCE IVP Last administered on 02/25/18at 07:57; Start 02/25/18 at 08:00; Stop 02/25/18 at 08:01; Status DC Acetaminophen/ Hydrocodone Bitart (Lortab 5/325) 1 tab PRN Q6HRS PRN PO SEVERE PAIN; Start 02/25/18 at 08:45 Amlodipine Besylate (Norvasc) 10 mg DAILY PO Last administered on 02/27/18at 07: 29; Start 02/25/18 at 09:30 Acetaminophen (Tylenol) 650 mg PRN Q6HRS PRN PO FEVER; Start 02/25/18 at 08:45 Ondansetron HCl (Zofran) 4 mg PRN Q6HRS PRN IV NAUSEA/VOMITING; Start 02/25/18 at 08:45 Morphine Sulfate (Morphine Sulfate) 2 mg PRN Q2HR PRN IV MODERATE TO SEVERE PAIN; Start 02/25/18 at 08:45 Tramadol HCl (Ultram) 50 mg PRN Q6HRS PRN PO MILD TO MODERATE PAIN; Start 02/25 at 08:45 Docusate Sodium (Colace) 100 mg PRN DAILY PRN PO CONSTIPATION; Start 02/25/18 at 08:45 Labetalol HCl (Normodyne Iv Push) 20 mg PRN Q2HR PRN IVP HYPERTENSION, SEE COMMENTS Last administered on 02/27/18at 00:28; Start 02/25/18 at 08:45 Potassium Chloride (Klor-Con) 40 meq 1X ONCE PO Last administered on at 10:03; Start 02/25/18 at 09:30; Stop 02/25/18 at 09:31; Status DC Nicardipine HCl 50 mg/Sodium Chloride 270 ml @ 0 mls/hr CONT PRN IV SEE I/O RECORD Last administered on 02/26/18at 00:29; Start 02/25/18 at 10:45 Aspirin (Ecotrin) 81 mg DAILYWBKFT PO Last administered on 02/27/18 07:28; Start 02/25/18 at 12:00 Enoxaparin Sodium (Lovenox 80mg Syringe) 80 mg Q12HR SQ Last administered on at 20:19; Start 02/25/18 at 12:00 Folic Acid (Folic Acid) 1 mg DAILY PO Last administered on 02/27/18 07:29; Start 02/25/18 at 12:00 Thiamine Mononitrate (Vitamin B-1) 100 mg DAILY PO Last administered on at 07:29; Start 02/25/18 at 12:00 Lorazepam (Ativan) 2 mg PRN Q4HRS PRN IV ANXIETY / AGITATION; Start 02/25/18 at 11:45 Carvedilol (Coreg) 12.5 mg BIDWMEALS PO Last administered on 02/26/18 07:16; Start 02/25/18 at 17:00; Stop 02/26/18 at 16:08; Status DC Potassium Chloride/Water 100 ml @ 100 mls/hr Q1H IV Last administered on at 14:58; Start 02/26/18 at 07:15; Stop 02/26/18 at 11:14; Status DC Info (Anti-Coagulation Monitoring By Pharmacy) 1 each PRN DAILY PRN MC SEE COMMENTS Last administered on 02/26/18at 10:33; Start 02/26/18 at 07:30 Regadenoson (Lexiscan) 0.4 mg 1X ONCE IV Last administered on 02/26/18at 09:54 ; Start 02/26/18 at 08:15; Stop 02/26/18 at 08:16; Status DC Atorvastatin Calcium (Lipitor) 20 mg QHS PO Last administered on 02/26/18at 20: 19; Start 02/26/18 at 21:00 Isosorbide Mononitrate (Imdur) 30 mg DAILY PO Last administered on 02/26/18at 09 :30; Start 02/26/18 at 09:30; Stop 02/26/18 at 13:32; Status DC Potassium Chloride/Water 50 ml @ 50 mls/hr Q1H IV ; Start 02/26/18 at 10:15; Stop 02/26/18 at 12:14; Status UNV Folic Acid (Folic Acid) 1 mg DAILY PO ; Start 02/26/18 at 11:00; Status Cancel Isosorbide Mononitrate (Imdur) 60 mg DAILY PO ; Start 02/27/18 at 09:00 Hydralazine HCl (Apresoline) 50 mg TID PO ; Start 02/26/18 at 14:00; Stop at 14:00; Status DC Hydralazine HCl (Apresoline) 50 mg PRN Q6HRS PRN PO ELEVATED BP, SEE COMMENTS; Start 02/26/18 at 14:00; Stop 02/26/18 at 16:08; Status DC Isosorbide Mononitrate (Imdur) 30 mg 1X ONCE PO Last administered on at 14:09; Start 02/26/18 at 14:15; Stop 02/26/18 at 14:16; Status DC Carvedilol (Coreg) 25 mg BIDWMEALS PO Last administered on 02/27/18at 07:28; Start 02/26/18 at 17:00 Hydralazine HCl (Apresoline) 50 mg TID PO Last administered on 02/27/18at 07:29 ; Start 02/26/18 at 21:00 Hydralazine HCl (Apresoline Inj) 10 mg ONCE ONCE IVP Last administered on 02/26at 16:24; Start 02/26/18 at 16:15; Stop 02/26/18 at 16:16; Status DC Active Scripts Active Ibuprofen 800 Mg Tablet 800 Mg PO PRN Q6HRS PRN [place] 5-325 Tablet (Acetaminophen/Hydrocodone Bitart) 1 Each Tablet 1-2 Tab PO Q4-6HRS PRN Cipro (Ciprofloxacin Hcl) 500 Mg Tablet 1 Tab PO BID Allergies Allergies: Coded Allergies: No Known Drug Allergies (Unverified , 02/02/14) ROS Review of System FULL ROS NEG EXCEPT ABOVE Physical Exam General: Alert, Oriented X3, Cooperative, No acute distress HEENT: Atraumatic, PERRLA, EOMI Lungs: Clear to auscultation, Normal air movement Heart: Regular rate, Normal S1, Normal S2 Abdomen: Normal bowel sounds, Soft, No tenderness Extremities: No clubbing, No cyanosis Skin: No breakdown Neuro: Normal speech, Cranial nerves 3-12 NL Psych/Mental Status: Mental status NL, Mood NL MUSCULOSKELETAL: No deformity, No swelling Vitals VITALS Vital Signs Date Time Temp Pulse Resp B/P (MAP) Pulse Ox O2 Delivery O2 Flow Rate FiO2 02/27/18 09:00 92 17 159/90 (113) 97 Room Air 02/27/18 08:00 98.4 98.4 Labs Labs Laboratory Tests Test 02/25/18 11:00 02/25/18 12:30 02/25/18 13:00 02/25/18 18:40 Nasal Screen MRSA (PCR) Negative (Negative) Urine Opiates Screen Pos (NEG) Urine Methadone Screen Neg (NEG) Urine Barbiturates Neg (NEG) Urine Phencyclidine Screen Neg (NEG) Urine Amphetamine/Methamphetamine Neg (NEG) Urine Benzodiazepines Screen Neg (NEG) Urine Cocaine Screen Neg (NEG) Urine Cannabinoids Screen Pos (NEG) Urine Ethyl Alcohol Neg (NEG) Creatine Kinase 185 U/L (39-308) Creatine Kinase MB (Mass) 1.9 ng/mL (0.0-3.6) Creatine Kinase MB Relative Index 1.0 % (0-4) Troponin I Quantitative 0.113 ng/mL (0.000-0.055) 0.130 ng/mL (0.000-0.055) Test 02/26/18 04:05 02/26/18 16:45 02/26/18 23:15 02/27/18 06:35 White Blood Count 9.5 x10^3/uL (4.0-11.0) 9.3 x10^3/uL (4.0-11.0) Red Blood Count 4.94 x10^6/uL (4.30-5.70) 4.63 x10^6/uL (4.30-5.70) Hemoglobin 14.7 g/dL (13.0-17.5) 13.6 g/dL (13.0-17.5) Hematocrit 43.9 % (39.0-53.0) 40.7 % (39.0-53.0) Mean Corpuscular Volume 89 fL (79-100) 88 fL (79-100) Mean Corpuscular Hemoglobin 30 pg (25-35) 29 pg (25-35) Mean Corpuscular Hemoglobin Concent 33 g/dL (31-37) 34 g/dL (31-37) Red Cell Distribution Width 13.9 % (11.5-14.5) 13.8 % (11.5-14.5) Platelet Count 213 x10^3/uL (140-400) 241 x10^3/uL (140-400) Neutrophils (%) (Auto) 69 % (31-73) 70 % (31-73) Lymphocytes (%) (Auto) 21 % (24-48) 20 % (24-48) Monocytes (%) (Auto) 7 % (0-9) 8 % (0-9) Eosinophils (%) (Auto) 2 % (0-3) 1 % (0-3) Basophils (%) (Auto) 1 % (0-3) 1 % (0-3) Neutrophils # (Auto) 6.6 x10^3uL (1.8-7.7) 6.5 x10^3uL (1.8-7.7) Lymphocytes # (Auto) 2.0 x10^3/uL (1.0-4.8) 1.9 x10^3/uL (1.0-4.8) Monocytes # (Auto) 0.7 x10^3/uL (0.0-1.1) 0.8 x10^3/uL (0.0-1.1) Eosinophils # (Auto) 0.2 x10^3/uL (0.0-0.7) 0.1 x10^3/uL (0.0-0.7) Basophils # (Auto) 0.1 x10^3/uL (0.0-0.2) 0.1 x10^3/uL (0.0-0.2) Sodium Level 135 mmol/L (136-145) 135 mmol/L (136-145) Potassium Level 2.7 mmol/L (3.5-5.1) 3.6 mmol/L (3.5-5.1) 3.4 mmol/L (3.5-5.1) Chloride Level 97 mmol/L (98-107) 100 mmol/L (98-107) Carbon Dioxide Level 30 mmol/L (21-32) 28 mmol/L (21-32) Anion Gap 8 (6-14) 7 (6-14) Blood Urea Nitrogen 18 mg/dL (8-26) 18 mg/dL (8-26) Creatinine 1.7 mg/dL (0.7-1.3) 1.7 mg/dL (0.7-1.3) Estimated GFR (Cockcroft-Gault) 54.0 54.0 Glucose Level 138 mg/dL (70-99) 124 mg/dL (70-99) Hemoglobin A1c 4.8 % (4.8-5.6) Calcium Level 9.3 mg/dL (8.5-10.1) 9.9 mg/dL (8.5-10.1) Triglycerides Level 262 mg/dL (0-150) Cholesterol Level 252 mg/dL (0-200) LDL Cholesterol, Calculated 157 mg/dL (0-100) VLDL Cholesterol, Calculated 52 mg/dL (0-40) Non-HDL Cholesterol Calculated 209 mg/dL (0-129) HDL Cholesterol 43 mg/dL (40-60) Cholesterol/HDL Ratio 5.9 Urine Collection Type Unknown Urine Color Yellow Urine Clarity Clear Urine pH 6.5 Urine Specific [place] 1.010 Urine Protein Negative mg/dL (NEG-TRACE) Urine Glucose (UA) Negative mg/dL (NEG) Urine Ketones (Stick) Negative mg/dL (NEG) Urine Blood Negative (NEG) Urine Nitrite Positive (NEG) Urine Bilirubin Negative (NEG) Urine Urobilinogen Dipstick 1.0 mg/dL (0.2 mg/dL) Urine Leukocyte Esterase Moderate (NEG) Urine RBC 0 /HPF (0-2) Urine WBC 11-20 /HPF (0-4) Urine Squamous Epithelial Cells Occ /LPF Urine Bacteria Many /HPF (0-FEW) BUN/Creatinine Ratio 11 (6-20) Total Bilirubin 1.0 mg/dL (0.2-1.0) Aspartate Amino Transf (AST/SGOT) 24 U/L (15-37) Alanine Aminotransferase (ALT/SGPT) 26 U/L (16-63) Alkaline Phosphatase 78 U/L (46-116) Total Protein 7.9 g/dL (6.4-8.2) Albumin 3.5 g/dL (3.4-5.0) Albumin/Globulin Ratio 0.8 (1.0-1.7) Laboratory Tests Test 02/26/18 16:45 02/26/18 23:15 02/27/18 06:35 Potassium Level 3.6 mmol/L (3.5-5.1) 3.4 mmol/L (3.5-5.1) Urine Collection Type Unknown Urine Color Yellow Urine Clarity Clear Urine pH 6.5 Urine Specific [place] 1.010 Urine Protein Negative mg/dL (NEG-TRACE) Urine Glucose (UA) Negative mg/dL (NEG) Urine Ketones (Stick) Negative mg/dL (NEG) Urine Blood Negative (NEG) Urine Nitrite Positive (NEG) Urine Bilirubin Negative (NEG) Urine Urobilinogen Dipstick 1.0 mg/dL (0.2 mg/dL) Urine Leukocyte Esterase Moderate (NEG) Urine RBC 0 /HPF (0-2) Urine WBC 11-20 /HPF (0-4) Urine Squamous Epithelial Cells Occ /LPF Urine Bacteria Many /HPF (0-FEW) White Blood Count 9.3 x10^3/uL (4.0-11.0) Red Blood Count 4.63 x10^6/uL (4.30-5.70) Hemoglobin 13.6 g/dL (13.0-17.5) Hematocrit 40.7 % (39.0-53.0) Mean Corpuscular Volume 88 fL (79-100) Mean Corpuscular Hemoglobin 29 pg (25-35) Mean Corpuscular Hemoglobin Concent 34 g/dL (31-37) Red Cell Distribution Width 13.8 % (11.5-14.5) Platelet Count 241 x10^3/uL (140-400) Neutrophils (%) (Auto) 70 % (31-73) Lymphocytes (%) (Auto) 20 % (24-48) Monocytes (%) (Auto) 8 % (0-9) Eosinophils (%) (Auto) 1 % (0-3) Basophils (%) (Auto) 1 % (0-3) Neutrophils # (Auto) 6.5 x10^3uL (1.8-7.7) Lymphocytes # (Auto) 1.9 x10^3/uL (1.0-4.8) Monocytes # (Auto) 0.8 x10^3/uL (0.0-1.1) Eosinophils # (Auto) 0.1 x10^3/uL (0.0-0.7) Basophils # (Auto) 0.1 x10^3/uL (0.0-0.2) Sodium Level 135 mmol/L (136-145) Chloride Level 100 mmol/L (98-107) Carbon Dioxide Level 28 mmol/L (21-32) Anion Gap 7 (6-14) Blood Urea Nitrogen 18 mg/dL (8-26) Creatinine 1.7 mg/dL (0.7-1.3) Estimated GFR (Cockcroft-Gault) 54.0 BUN/Creatinine Ratio 11 (6-20) Glucose Level 124 mg/dL (70-99) Calcium Level 9.9 mg/dL (8.5-10.1) Total Bilirubin 1.0 mg/dL (0.2-1.0) Aspartate Amino Transf (AST/SGOT) 24 U/L (15-37) Alanine Aminotransferase (ALT/SGPT) 26 U/L (16-63) Alkaline Phosphatase 78 U/L (46-116) Total Protein 7.9 g/dL (6.4-8.2) Albumin 3.5 g/dL (3.4-5.0) Albumin/Globulin Ratio 0.8 (1.0-1.7) Assessment/Plan Assessment/Plan IMP HTN EMERGENCY HYPOKALEMIA NSTEMI CM WITH EF OF 30% POLYSUBSTANCE DRUG ABUSE CKD STAGE 3-CR OF 1.7-1.9 NOW BUT WAS 1.6 IN 2016 SUSPECT NON COMPLIANCE PLAN CONT WITH IV ANTIHYPERTENSIVES NEEDED RESUME PO MEDS RENAL SONO NEG ENC COMPLIANCE REPLACE K WILL FOLLOW PIETRO KUMAR MD Feb 27, 2018 10:14
--- NOTE | 2018-02-27 10:53 | PDOC ---
PROGRESS NOTES Chief Complaint Chief Complaint Assessment/Plan Assessment/Plan systolic CHF exacerbation EF 30% , unstable angina vs. NSTEMI MARTINA, vasomotor vs, CKD3, suspect renal hypoperfusion tobaccoism alcohol abuse, drinks heavily on weekends drug abuse with marijuana HTN urgency hypokalemia noncompliance hyperlipidemia hyperglycemia tobacco abuse uti suspected plan: rocephin 1 gm iv x 1 educated on substance avoidance, treatment a1c nephrology following coreg bid 12.5 mg po statin rx replace k card following tsh, t3, t4, lipid panel noted cycLE CE, first trop is high, demand ischemia or recent MA ABnormal EKG with ST depression ICU,monitoring FA , VITB1, Ativan prn lovenox bid echo ef 30% US renal noted accuchecks stress test noted urine culture Vitals Vitals Vital Signs Date Time Temp Pulse Resp B/P (MAP) Pulse Ox O2 Delivery O2 Flow Rate FiO2 02/27/18 10:13 105 163/97 02/27/18 10:00 20 98 Room Air 02/27/18 08:00 98.4 98.4 Physical Exam General: Alert, Oriented X3, Cooperative, No acute distress Heart: Regular rate, Normal S1, Normal S2 Lungs: Clear Abdomen: Normal bowel sounds, Soft, No tenderness Extremities: No clubbing, No cyanosis Skin: No breakdown Labs LABS Rest: Stress: Viability: Radiopharm. Tc99m Sestamibi Tc99m Sestamibi Dose 12mCi 35.8mCi Img Date 02/26/2018 02/26/2018 Inj-Img Time 60min. 60min. Rest Admin Site: IV - Left Forearm Director Of Payroll: PHUONG Garrison ARRT (R)(N) Stress Admin Site: IV - Left Forearm Director Of Payroll: PHUONG Garrison, ARRT (R)(N) STRESS DATA End Diast. Vol. 184.0ml LVEDV index BSA 100.0ml End Syst. Vol. 139.0ml LVESV index BSA 76.0ml Myocardial Mass 187.0g Eject. Fraction 24.0% Stress Scores Regional WT 3.00 Summed WT 50.00 Regional WM 2.00 Summed WM 50.00 The rest and stress images show normal perfusion, normal contraction and thickening. LV Perf. Quant 17 Seg. SSS 1.00 17 Seg. SRS 3.00 17 Seg. SDS 0.00 Stress Defect Extent (% LAD) 0.00 Rest Defect Extent (% LAD) 0.00 Rev. Defect Extent (% LAD) 0.00 Stress Defect Extent (% LCX) 0.00 Rest Defect Extent (% LCX) 26.30 Rev. Defect Extent (% LCX) 0.00 Stress Defect Extent (% RCA) 0.00 Rest Defect Extent (% RCA) 0.00 Rev. Defect Extent (% RCA) 0.00 Stress Defect Extent (% MIKHAIL) 0.00 Rest Defect Extent (% MIKHAIL) 4.60 Rev. Defect Extent (% MIKHAIL) 0.00 Other Information Quality:Average Risk Assessment: High Risk Conclusion 1. No evidence of stress induced EKG changes. Baseline EKG with SR and LVH 2. Normal perfusion at stress/rest. Subdiaphragmatic attenuation artifact noted. 3. Severe LV dysfunction. EF 25% 4. High risk for future CV events. Signed by : Antoine Fernandez, Electronically Approved : 02/26/2018 12:43:48 Laboratory Tests Test 02/26/18 16:45 02/26/18 23:15 02/27/18 06:35 Potassium Level 3.6 mmol/L (3.5-5.1) 3.4 mmol/L (3.5-5.1) Urine Collection Type Unknown Urine Color Yellow Urine Clarity Clear Urine pH 6.5 Urine Specific Mcloud 1.010 Urine Protein Negative mg/dL (NEG-TRACE) Urine Glucose (UA) Negative mg/dL (NEG) Urine Ketones (Stick) Negative mg/dL (NEG) Urine Blood Negative (NEG) Urine Nitrite Positive (NEG) Urine Bilirubin Negative (NEG) Urine Urobilinogen Dipstick 1.0 mg/dL (0.2 mg/dL) Urine Leukocyte Esterase Moderate (NEG) Urine RBC 0 /HPF (0-2) Urine WBC 11-20 /HPF (0-4) Urine Squamous Epithelial Cells Occ /LPF Urine Bacteria Many /HPF (0-FEW) White Blood Count 9.3 x10^3/uL (4.0-11.0) Red Blood Count 4.63 x10^6/uL (4.30-5.70) Hemoglobin 13.6 g/dL (13.0-17.5) Hematocrit 40.7 % (39.0-53.0) Mean Corpuscular Volume 88 fL (79-100) Mean Corpuscular Hemoglobin 29 pg (25-35) Mean Corpuscular Hemoglobin Concent 34 g/dL (31-37) Red Cell Distribution Width 13.8 % (11.5-14.5) Platelet Count 241 x10^3/uL (140-400) Neutrophils (%) (Auto) 70 % (31-73) Lymphocytes (%) (Auto) 20 % (24-48) Monocytes (%) (Auto) 8 % (0-9) Eosinophils (%) (Auto) 1 % (0-3) Basophils (%) (Auto) 1 % (0-3) Neutrophils # (Auto) 6.5 x10^3uL (1.8-7.7) Lymphocytes # (Auto) 1.9 x10^3/uL (1.0-4.8) Monocytes # (Auto) 0.8 x10^3/uL (0.0-1.1) Eosinophils # (Auto) 0.1 x10^3/uL (0.0-0.7) Basophils # (Auto) 0.1 x10^3/uL (0.0-0.2) Sodium Level 135 mmol/L (136-145) Chloride Level 100 mmol/L (98-107) Carbon Dioxide Level 28 mmol/L (21-32) Anion Gap 7 (6-14) Blood Urea Nitrogen 18 mg/dL (8-26) Creatinine 1.7 mg/dL (0.7-1.3) Estimated GFR (Cockcroft-Gault) 54.0 BUN/Creatinine Ratio 11 (6-20) Glucose Level 124 mg/dL (70-99) Calcium Level 9.9 mg/dL (8.5-10.1) Total Bilirubin 1.0 mg/dL (0.2-1.0) Aspartate Amino Transf (AST/SGOT) 24 U/L (15-37) Alanine Aminotransferase (ALT/SGPT) 26 U/L (16-63) Alkaline Phosphatase 78 U/L (46-116) Total Protein 7.9 g/dL (6.4-8.2) Albumin 3.5 g/dL (3.4-5.0) Albumin/Globulin Ratio 0.8 (1.0-1.7) Assessment and Plan Assessmemt and Plan Problems Medical Problems: (1) Chest pain Status: Acute (2) Hypertensive emergency Status: Acute (3) Hypokalemia Status: Acute (4) Renal insufficiency Status: Acute 30 min cc time Comment Review of Relevant I have reviewed the following items ketty (where applicable) has been applied. Labs Laboratory Tests Test 02/25/18 11:00 02/25/18 12:30 02/25/18 13:00 02/25/18 18:40 Nasal Screen MRSA (PCR) Negative (Negative) Urine Opiates Screen Pos (NEG) Urine Methadone Screen Neg (NEG) Urine Barbiturates Neg (NEG) Urine Phencyclidine Screen Neg (NEG) Urine Amphetamine/Methamphetamine Neg (NEG) Urine Benzodiazepines Screen Neg (NEG) Urine Cocaine Screen Neg (NEG) Urine Cannabinoids Screen Pos (NEG) Urine Ethyl Alcohol Neg (NEG) Creatine Kinase 185 U/L (39-308) Creatine Kinase MB (Mass) 1.9 ng/mL (0.0-3.6) Creatine Kinase MB Relative Index 1.0 % (0-4) Troponin I Quantitative 0.113 ng/mL (0.000-0.055) 0.130 ng/mL (0.000-0.055) Test 02/26/18 04:05 02/26/18 16:45 02/26/18 23:15 02/27/18 06:35 White Blood Count 9.5 x10^3/uL (4.0-11.0) 9.3 x10^3/uL (4.0-11.0) Red Blood Count 4.94 x10^6/uL (4.30-5.70) 4.63 x10^6/uL (4.30-5.70) Hemoglobin 14.7 g/dL (13.0-17.5) 13.6 g/dL (13.0-17.5) Hematocrit 43.9 % (39.0-53.0) 40.7 % (39.0-53.0) Mean Corpuscular Volume 89 fL (79-100) 88 fL (79-100) Mean Corpuscular Hemoglobin 30 pg (25-35) 29 pg (25-35) Mean Corpuscular Hemoglobin Concent 33 g/dL (31-37) 34 g/dL (31-37) Red Cell Distribution Width 13.9 % (11.5-14.5) 13.8 % (11.5-14.5) Platelet Count 213 x10^3/uL (140-400) 241 x10^3/uL (140-400) Neutrophils (%) (Auto) 69 % (31-73) 70 % (31-73) Lymphocytes (%) (Auto) 21 % (24-48) 20 % (24-48) Monocytes (%) (Auto) 7 % (0-9) 8 % (0-9) Eosinophils (%) (Auto) 2 % (0-3) 1 % (0-3) Basophils (%) (Auto) 1 % (0-3) 1 % (0-3) Neutrophils # (Auto) 6.6 x10^3uL (1.8-7.7) 6.5 x10^3uL (1.8-7.7) Lymphocytes # (Auto) 2.0 x10^3/uL (1.0-4.8) 1.9 x10^3/uL (1.0-4.8) Monocytes # (Auto) 0.7 x10^3/uL (0.0-1.1) 0.8 x10^3/uL (0.0-1.1) Eosinophils # (Auto) 0.2 x10^3/uL (0.0-0.7) 0.1 x10^3/uL (0.0-0.7) Basophils # (Auto) 0.1 x10^3/uL (0.0-0.2) 0.1 x10^3/uL (0.0-0.2) Sodium Level 135 mmol/L (136-145) 135 mmol/L (136-145) Potassium Level 2.7 mmol/L (3.5-5.1) 3.6 mmol/L (3.5-5.1) 3.4 mmol/L (3.5-5.1) Chloride Level 97 mmol/L (98-107) 100 mmol/L (98-107) Carbon Dioxide Level 30 mmol/L (21-32) 28 mmol/L (21-32) Anion Gap 8 (6-14) 7 (6-14) Blood Urea Nitrogen 18 mg/dL (8-26) 18 mg/dL (8-26) Creatinine 1.7 mg/dL (0.7-1.3) 1.7 mg/dL (0.7-1.3) Estimated GFR (Cockcroft-Gault) 54.0 54.0 Glucose Level 138 mg/dL (70-99) 124 mg/dL (70-99) Hemoglobin A1c 4.8 % (4.8-5.6) Calcium Level 9.3 mg/dL (8.5-10.1) 9.9 mg/dL (8.5-10.1) Triglycerides Level 262 mg/dL (0-150) Cholesterol Level 252 mg/dL (0-200) LDL Cholesterol, Calculated 157 mg/dL (0-100) VLDL Cholesterol, Calculated 52 mg/dL (0-40) Non-HDL Cholesterol Calculated 209 mg/dL (0-129) HDL Cholesterol 43 mg/dL (40-60) Cholesterol/HDL Ratio 5.9 Urine Collection Type Unknown Urine Color Yellow Urine Clarity Clear Urine pH 6.5 Urine Specific Mcloud 1.010 Urine Protein Negative mg/dL (NEG-TRACE) Urine Glucose (UA) Negative mg/dL (NEG) Urine Ketones (Stick) Negative mg/dL (NEG) Urine Blood Negative (NEG) Urine Nitrite Positive (NEG) Urine Bilirubin Negative (NEG) Urine Urobilinogen Dipstick 1.0 mg/dL (0.2 mg/dL) Urine Leukocyte Esterase Moderate (NEG) Urine RBC 0 /HPF (0-2) Urine WBC 11-20 /HPF (0-4) Urine Squamous Epithelial Cells Occ /LPF Urine Bacteria Many /HPF (0-FEW) BUN/Creatinine Ratio 11 (6-20) Total Bilirubin 1.0 mg/dL (0.2-1.0) Aspartate Amino Transf (AST/SGOT) 24 U/L (15-37) Alanine Aminotransferase (ALT/SGPT) 26 U/L (16-63) Alkaline Phosphatase 78 U/L (46-116) Total Protein 7.9 g/dL (6.4-8.2) Albumin 3.5 g/dL (3.4-5.0) Albumin/Globulin Ratio 0.8 (1.0-1.7) Laboratory Tests Test 02/26/18 16:45 02/26/18 23:15 02/27/18 06:35 Potassium Level 3.6 mmol/L (3.5-5.1) 3.4 mmol/L (3.5-5.1) Urine Collection Type Unknown Urine Color Yellow Urine Clarity Clear Urine pH 6.5 Urine Specific Mcloud 1.010 Urine Protein Negative mg/dL (NEG-TRACE) Urine Glucose (UA) Negative mg/dL (NEG) Urine Ketones (Stick) Negative mg/dL (NEG) Urine Blood Negative (NEG) Urine Nitrite Positive (NEG) Urine Bilirubin Negative (NEG) Urine Urobilinogen Dipstick 1.0 mg/dL (0.2 mg/dL) Urine Leukocyte Esterase Moderate (NEG) Urine RBC 0 /HPF (0-2) Urine WBC 11-20 /HPF (0-4) Urine Squamous Epithelial Cells Occ /LPF Urine Bacteria Many /HPF (0-FEW) White Blood Count 9.3 x10^3/uL (4.0-11.0) Red Blood Count 4.63 x10^6/uL (4.30-5.70) Hemoglobin 13.6 g/dL (13.0-17.5) Hematocrit 40.7 % (39.0-53.0) Mean Corpuscular Volume 88 fL (79-100) Mean Corpuscular Hemoglobin 29 pg (25-35) Mean Corpuscular Hemoglobin Concent 34 g/dL (31-37) Red Cell Distribution Width 13.8 % (11.5-14.5) Platelet Count 241 x10^3/uL (140-400) Neutrophils (%) (Auto) 70 % (31-73) Lymphocytes (%) (Auto) 20 % (24-48) Monocytes (%) (Auto) 8 % (0-9) Eosinophils (%) (Auto) 1 % (0-3) Basophils (%) (Auto) 1 % (0-3) Neutrophils # (Auto) 6.5 x10^3uL (1.8-7.7) Lymphocytes # (Auto) 1.9 x10^3/uL (1.0-4.8) Monocytes # (Auto) 0.8 x10^3/uL (0.0-1.1) Eosinophils # (Auto) 0.1 x10^3/uL (0.0-0.7) Basophils # (Auto) 0.1 x10^3/uL (0.0-0.2) Sodium Level 135 mmol/L (136-145) Chloride Level 100 mmol/L (98-107) Carbon Dioxide Level 28 mmol/L (21-32) Anion Gap 7 (6-14) Blood Urea Nitrogen 18 mg/dL (8-26) Creatinine 1.7 mg/dL (0.7-1.3) Estimated GFR (Cockcroft-Gault) 54.0 BUN/Creatinine Ratio 11 (6-20) Glucose Level 124 mg/dL (70-99) Calcium Level 9.9 mg/dL (8.5-10.1) Total Bilirubin 1.0 mg/dL (0.2-1.0) Aspartate Amino Transf (AST/SGOT) 24 U/L (15-37) Alanine Aminotransferase (ALT/SGPT) 26 U/L (16-63) Alkaline Phosphatase 78 U/L (46-116) Total Protein 7.9 g/dL (6.4-8.2) Albumin 3.5 g/dL (3.4-5.0) Albumin/Globulin Ratio 0.8 (1.0-1.7) Medications Current Medications Aspirin (Children'S Aspirin) 324 mg 1X ONCE PO Last administered on 02/25/18at 07:14; Start 02/25/18 at 07:00; Stop 02/25/18 at 07:04; Status DC Morphine Sulfate (Morphine Sulfate) 4 mg 1X ONCE IV Last administered on at 07:15; Start 02/25/18 at 07:00; Stop 02/25/18 at 07:04; Status DC Nitroglycerin/ Dextrose 250 ml @ 3 mls/hr 1X ONCE IV Last administered on 02/25at 07:14; Start 02/25/18 at 07:00; Stop 02/28/18 at 18:19 Labetalol HCl (Normodyne Iv Push) 20 mg 1X ONCE IVP Last administered on at 07:12; Start 02/25/18 at 07:00; Stop 02/25/18 at 07:04; Status DC Potassium Chloride (Klor-Con) 40 meq 1X ONCE PO Last administered on at 07:49; Start 02/25/18 at 07:45; Stop 02/25/18 at 07:46; Status DC Potassium Chloride/Water 50 ml @ 50 mls/hr 1X ONCE IV ; Start 02/25/18 at 07:45 ; Stop 02/25/18 at 08:44; Status UNV Potassium Chloride/Water 100 ml @ 100 mls/hr Q1H IV Last administered on at 09:17; Start 02/25/18 at 08:00; Stop 02/25/18 at 09:59; Status DC Furosemide (Lasix) 40 mg 1X ONCE IVP Last administered on 02/25/18at 07:57; Start 02/25/18 at 08:00; Stop 02/25/18 at 08:01; Status DC Acetaminophen/ Hydrocodone Bitart (Lortab 5/325) 1 tab PRN Q6HRS PRN PO SEVERE PAIN; Start 02/25/18 at 08:45 Amlodipine Besylate (Norvasc) 10 mg DAILY PO Last administered on 02/27/18at 07: 29; Start 02/25/18 at 09:30 Acetaminophen (Tylenol) 650 mg PRN Q6HRS PRN PO FEVER; Start 02/25/18 at 08:45 Ondansetron HCl (Zofran) 4 mg PRN Q6HRS PRN IV NAUSEA/VOMITING; Start 02/25/18 at 08:45 Morphine Sulfate (Morphine Sulfate) 2 mg PRN Q2HR PRN IV MODERATE TO SEVERE PAIN; Start 02/25/18 at 08:45 Tramadol HCl (Ultram) 50 mg PRN Q6HRS PRN PO MILD TO MODERATE PAIN; Start 02/25 at 08:45 Docusate Sodium (Colace) 100 mg PRN DAILY PRN PO CONSTIPATION; Start 02/25/18 at 08:45 Labetalol HCl (Normodyne Iv Push) 20 mg PRN Q2HR PRN IVP HYPERTENSION, SEE COMMENTS Last administered on 02/27/18at 00:28; Start 02/25/18 at 08:45 Potassium Chloride (Klor-Con) 40 meq 1X ONCE PO Last administered on at 10:03; Start 02/25/18 at 09:30; Stop 02/25/18 at 09:31; Status DC Nicardipine HCl 50 mg/Sodium Chloride 270 ml @ 0 mls/hr CONT PRN IV SEE I/O RECORD Last administered on 02/26/18at 00:29; Start 02/25/18 at 10:45 Aspirin (Ecotrin) 81 mg DAILYWBKFT PO Last administered on 02/27/18 07:28; Start 02/25/18 at 12:00 Enoxaparin Sodium (Lovenox 80mg Syringe) 80 mg Q12HR SQ Last administered on at 10:14; Start 02/25/18 at 12:00 Folic Acid (Folic Acid) 1 mg DAILY PO Last administered on 02/27/18at 07:29; Start 02/25/18 at 12:00 Thiamine Mononitrate (Vitamin B-1) 100 mg DAILY PO Last administered on at 07:29; Start 02/25/18 at 12:00 Lorazepam (Ativan) 2 mg PRN Q4HRS PRN IV ANXIETY / AGITATION; Start 02/25/18 at 11:45 Carvedilol (Coreg) 12.5 mg BIDWMEALS PO Last administered on 02/26/18at 07:16; Start 02/25/18 at 17:00; Stop 02/26/18 at 16:08; Status DC Potassium Chloride/Water 100 ml @ 100 mls/hr Q1H IV Last administered on at 14:58; Start 02/26/18 at 07:15; Stop 02/26/18 at 11:14; Status DC Info (Anti-Coagulation Monitoring By Pharmacy) 1 each PRN DAILY PRN MC SEE COMMENTS Last administered on 02/26/18at 10:33; Start 02/26/18 at 07:30 Regadenoson (Lexiscan) 0.4 mg 1X ONCE IV Last administered on 02/26/18at 09:54 ; Start 02/26/18 at 08:15; Stop 02/26/18 at 08:16; Status DC Atorvastatin Calcium (Lipitor) 20 mg QHS PO Last administered on 02/26/18at 20: 19; Start 02/26/18 at 21:00 Isosorbide Mononitrate (Imdur) 30 mg DAILY PO Last administered on 02/26/18at 09 :30; Start 02/26/18 at 09:30; Stop 02/26/18 at 13:32; Status DC Potassium Chloride/Water 50 ml @ 50 mls/hr Q1H IV ; Start 02/26/18 at 10:15; Stop 02/26/18 at 12:14; Status UNV Folic Acid (Folic Acid) 1 mg DAILY PO ; Start 02/26/18 at 11:00; Status Cancel Isosorbide Mononitrate (Imdur) 60 mg DAILY PO Last administered on 02/27/18at 10 :13; Start 02/27/18 at 09:00 Hydralazine HCl (Apresoline) 50 mg TID PO ; Start 02/26/18 at 14:00; Stop at 14:00; Status DC Hydralazine HCl (Apresoline) 50 mg PRN Q6HRS PRN PO ELEVATED BP, SEE COMMENTS; Start 02/26/18 at 14:00; Stop 02/26/18 at 16:08; Status DC Isosorbide Mononitrate (Imdur) 30 mg 1X ONCE PO Last administered on at 14:09; Start 02/26/18 at 14:15; Stop 02/26/18 at 14:16; Status DC Carvedilol (Coreg) 25 mg BIDWMEALS PO Last administered on 02/27/18at 07:28; Start 02/26/18 at 17:00 Hydralazine HCl (Apresoline) 50 mg TID PO Last administered on 02/27/18at 07:29 ; Start 02/26/18 at 21:00 Hydralazine HCl (Apresoline Inj) 10 mg ONCE ONCE IVP Last administered on 02/26at 16:24; Start 02/26/18 at 16:15; Stop 02/26/18 at 16:16; Status DC Potassium Chloride (Klor-Con) 20 meq DAILYWBKFT PO ; Start 02/27/18 at 11:00 Active Scripts Active Ibuprofen 800 Mg Tablet 800 Mg PO PRN Q6HRS PRN Potrero 5-325 Tablet (Acetaminophen/Hydrocodone Bitart) 1 Each Tablet 1-2 Tab PO Q4-6HRS PRN Cipro (Ciprofloxacin Hcl) 500 Mg Tablet 1 Tab PO BID Vitals/I & O Vital Sign - Last 24 Hours 02/26/18 02/26/18 02/26/18 02/26/18 11:00 11:37 12:00 12:00 Temp 98.0 98.0 Pulse 88 88 88 89 Resp 17 20 B/P (MAP) 175/116 (135) 188/124 188/112 188/124 (145) O2 Delivery Room Air Room Air 02/26/18 02/26/18 02/26/18 02/26/18 12:00 12:45 13:00 13:30 Temp 98.2 98.2 Pulse 92 85 90 Resp 20 20 17 B/P (MAP) 179/124 (142) 175/109 (131) 158/90 (112) Pulse Ox 100 O2 Delivery Room Air Room Air Room Air Room Air 02/26/18 02/26/18 02/26/18 02/26/18 13:45 14:00 14:09 15:00 Pulse 90 94 94 94 Resp 17 20 25 B/P (MAP) 132/80 (97) 182/117 (138) 182/117 150/90 (110) Pulse Ox 99 O2 Delivery Room Air Room Air Room Air 02/26/18 02/26/18 02/26/18 02/26/18 16:00 16:00 16:24 16:25 Temp 98.2 98.2 Pulse 93 93 93 Resp 22 B/P (MAP) 170/113 (132) 170/113 170/113 O2 Delivery Room Air Room Air 02/26/18 02/26/18 02/26/18 02/26/18 17:00 17:20 18:00 19:00 Temp 98.8 98.8 Pulse 73 67 89 92 Resp 15 16 16 18 B/P (MAP) 171/104 (126) 97/66 (76) 169/97 (121) 159/94 (115) O2 Delivery Room Air Room Air Room Air Room Air 02/26/18 02/26/18 02/26/18 02/26/18 19:44 19:53 20:00 20:19 Pulse 96 96 Resp 18 B/P (MAP) 180/102 (128) 180/102 O2 Delivery Room Air Room Air 02/26/18 02/26/18 02/26/18 02/26/18 20:19 21:00 21:15 22:00 Pulse 96 100 Resp 20 20 B/P (MAP) 170/98 (122) 151/83 (105) Pulse Ox 98 O2 Delivery Room Air Room Air 02/26/18 02/26/18 02/26/18 02/26/18 22:03 23:00 23:10 23:19 Temp 98.4 98.4 Pulse 97 111 Resp 20 B/P (MAP) 114/71 (85) 172/87 (115) Pulse Ox 99 O2 Delivery Room Air Room Air Room Air 02/27/18 02/27/18 02/27/18 02/27/18 00:01 00:19 00:28 01:00 Pulse 99 99 Resp 18 18 B/P (MAP) 187/107 (133) 187/107 Pulse Ox 98 O2 Delivery Room Air 02/27/18 02/27/18 02/27/18 02/27/18 01:22 02:00 02:00 03:04 Pulse 93 97 93 Resp 18 20 B/P (MAP) 140/85 (103) 168/109 (128) 163/97 (119) O2 Delivery Room Air Room Air Room Air 02/27/18 02/27/18 02/27/18 02/27/18 04:01 04:03 05:00 06:00 Temp 98.5 98.5 Pulse 102 91 92 Resp 18 13 14 B/P (MAP) 166/102 (123) 140/89 (106) 131/93 (106) Pulse Ox 98 97 O2 Delivery Room Air Room Air Room Air Room Air 02/27/18 02/27/18 02/27/18 02/27/18 07:00 07:28 07:29 07:29 Pulse 98 97 95 95 Resp 16 B/P (MAP) 181/121 (141) 194/126 194/126 194/126 Pulse Ox 98 O2 Delivery Room Air 02/27/18 02/27/18 02/27/18 02/27/18 08:00 08:00 09:00 10:00 Temp 98.4 98.4 Pulse 90 92 102 Resp 17 17 20 B/P (MAP) 166/105 (125) 159/90 (113) 163/97 (119) Pulse Ox 98 97 98 O2 Delivery Room Air Room Air Room Air Room Air 02/27/18 10:13 Pulse 105 B/P (MAP) 163/97 Intake and Output 02/26/18 02/26/18 02/27/18 15:00 23:00 07:00 Intake Total 1270.01 ml 460 ml Output Total 1150 ml Balance 1270.01 ml 460 ml -1150 ml MARIA ISABEL CORTEZ MD Feb 27, 2018 10:53
[2018-02-27] MEDS ORDERED: POTASSIUM CHLORIDE 20 MEQ TABLET.ER. PO SCH (11:00)
[2018-02-27] MEDS ORDERED: cefTRIAXone IV Push 1 GM VIAL. IVP SCH (12:00)
[2018-02-27] MEDS ORDERED: POTASSIUM CHLORIDE 20 MEQ TABLET.ER. PO ONE (12:00)
[2018-02-27 13:58] LABS: BILIRUBIN,URINE NEGATIVE (NEG); CLARITY,URINE CLOUDY; COLOR,URINE YELLOW; NITRITE,URINE NEGATIVE (NEG); PH,URINE 6.5; PROTEIN,URINE 100 mg/dL (NEG-TRACE)
[2018-02-27] MEDS: ANTI-COAG MONITOR BY PHARMACY. MC PRN (14:23)
[2018-02-27 14:30] LABS: BACTERIA,URINE MANY /HPF (0-FEW); RBC,URINE >40 /HPF (0-2); WBC,URINE 20-40 /HPF (0-4)
--- NOTE | 2018-02-27 15:33 | PDOC3 ---
Discharge Summary Date of Admission: Feb 25, 2018 Date of Discharge: Feb 27, 2018 Follow-Up: 3-5 days Admitting Diagnosis comment: DISCHARGE DIAGNOSIS Chief Complaint Assessment/Plan Assessment/Plan systolic CHF exacerbation EF 30% , unstable angina vs. NSTEMI MARTINA, vasomotor vs, CKD3, suspect renal hypoperfusion tobaccoism alcohol abuse, drinks heavily on weekends drug abuse with marijuana HTN urgency hypokalemia noncompliance hyperlipidemia hyperglycemia tobacco abuse uti suspected plan: rocephin 1 gm iv x 1 educated on substance avoidance, treatment a1c nephrology following coreg bid 12.5 mg po statin rx replace k card following tsh, t3, t4, lipid panel noted cycLE CE, first trop is high, demand ischemia or recent [place] ABnormal EKG with ST depression ICU,monitoring FA , VITB1, Ativan prn lovenox bid echo ef 30% US renal noted accuchecks stress test noted urine culture, ROCEPHIN 1 GM IV X 1, THEN KEFLEX 250MG PO QID X 10 DAYS Vitals Vitals Vital Signs Date Time Temp Pulse Resp B/P (MAP) Pulse Ox O2 Delivery O2 Flow Rate FiO2 02/27/18 10:13 105 163/97 02/27/18 10:00 20 98 Room Air 02/27/18 08:00 98.4 98.4 Physical Exam General: Alert, Oriented X3, Cooperative, No acute distress Heart: Regular rate, Normal S1, Normal S2 Lungs: Clear Abdomen: Normal bowel sounds, Soft, No tenderness Extremities: No clubbing, No cyanosis Skin: No breakdown Labs LABS Rest: Stress: Viability: Radiopharm. Tc99m Sestamibi Tc99m Sestamibi Dose 12mCi 35.8mCi Img Date 02/26/2018 02/26/2018 Inj-Img Time 60min. 60min. Rest Admin Site: IV - Left Forearm Gis Professor: PHUONG Garrison, SABAS (R)(N) Stress Admin Site: IV - Left Forearm Gis Professor: PHUONG Garrison, ARRT (R)(N) STRESS DATA End Diast. Vol. 184.0ml LVEDV index BSA 100.0ml End Syst. Vol. 139.0ml LVESV index BSA 76.0ml Myocardial Mass 187.0g Eject. Fraction 24.0% Stress Scores Regional WT 3.00 Summed WT 50.00 Regional WM 2.00 Summed WM 50.00 The rest and stress images show normal perfusion, normal contraction and thickening. LV Perf. Quant 17 Seg. SSS 1.00 17 Seg. SRS 3.00 17 Seg. SDS 0.00 Stress Defect Extent (% LAD) 0.00 Rest Defect Extent (% LAD) 0.00 Rev. Defect Extent (% LAD) 0.00 Stress Defect Extent (% LCX) 0.00 Rest Defect Extent (% LCX) 26.30 Rev. Defect Extent (% LCX) 0.00 Stress Defect Extent (% RCA) 0.00 Rest Defect Extent (% RCA) 0.00 Rev. Defect Extent (% RCA) 0.00 Stress Defect Extent (% MIKHAIL) 0.00 Rest Defect Extent (% MIKHAIL) 4.60 Rev. Defect Extent (% MIKHAIL) 0.00 Other Information Quality:Average Risk Assessment: High Risk Conclusion 1. No evidence of stress induced EKG changes. Baseline EKG with SR and LVH 2. Normal perfusion at stress/rest. Subdiaphragmatic attenuation artifact noted. 3. Severe LV dysfunction. EF 25% 4. High risk for future CV events. Signed by : Antoine Fernandez, FINAL DIAGNOSIS Problems Medical Problems: (1) Chest pain Status: Acute (2) Hypertensive emergency Status: Acute (3) Hypokalemia Status: Acute (4) Renal insufficiency Status: Acute Brief Hospital Course Mr. Yousif is a 43 old [sex] who presented with [ ANGINA, HTN] CONDITION AT DISCHARGE: Improved Discharge Medications Current Medications Aspirin (Children'S Aspirin) 324 mg 1X ONCE PO Last administered on 02/25/18at 07:14; Start 02/25/18 at 07:00; Stop 02/25/18 at 07:04; Status DC Morphine Sulfate (Morphine Sulfate) 4 mg 1X ONCE IV Last administered on at 07:15; Start 02/25/18 at 07:00; Stop 02/25/18 at 07:04; Status DC Nitroglycerin/ Dextrose 250 ml @ 3 mls/hr 1X ONCE IV Last administered on 02/25at 07:14; Start 02/25/18 at 07:00; Stop 02/28/18 at 18:19 Labetalol HCl (Normodyne Iv Push) 20 mg 1X ONCE IVP Last administered on at 07:12; Start 02/25/18 at 07:00; Stop 02/25/18 at 07:04; Status DC Potassium Chloride (Klor-Con) 40 meq 1X ONCE PO Last administered on at 07:49; Start 02/25/18 at 07:45; Stop 02/25/18 at 07:46; Status DC Potassium Chloride/Water 50 ml @ 50 mls/hr 1X ONCE IV ; Start 02/25/18 at 07:45 ; Stop 02/25/18 at 08:44; Status UNV Potassium Chloride/Water 100 ml @ 100 mls/hr Q1H IV Last administered on at 09:17; Start 02/25/18 at 08:00; Stop 02/25/18 at 09:59; Status DC Furosemide (Lasix) 40 mg 1X ONCE IVP Last administered on 02/25/18at 07:57; Start 02/25/18 at 08:00; Stop 02/25/18 at 08:01; Status DC Acetaminophen/ Hydrocodone Bitart (Lortab 5/325) 1 tab PRN Q6HRS PRN PO SEVERE PAIN; Start 02/25/18 at 08:45 Amlodipine Besylate (Norvasc) 10 mg DAILY PO Last administered on 02/27/18at 07: 29; Start 02/25/18 at 09:30 Acetaminophen (Tylenol) 650 mg PRN Q6HRS PRN PO FEVER; Start 02/25/18 at 08:45 Ondansetron HCl (Zofran) 4 mg PRN Q6HRS PRN IV NAUSEA/VOMITING; Start 02/25/18 at 08:45 Morphine Sulfate (Morphine Sulfate) 2 mg PRN Q2HR PRN IV MODERATE TO SEVERE PAIN; Start 02/25/18 at 08:45 Tramadol HCl (Ultram) 50 mg PRN Q6HRS PRN PO MILD TO MODERATE PAIN; Start 02/25 at 08:45 Docusate Sodium (Colace) 100 mg PRN DAILY PRN PO CONSTIPATION; Start 02/25/18 at 08:45 Labetalol HCl (Normodyne Iv Push) 20 mg PRN Q2HR PRN IVP HYPERTENSION, SEE COMMENTS Last administered on 02/27/18at 00:28; Start 02/25/18 at 08:45 Potassium Chloride (Klor-Con) 40 meq 1X ONCE PO Last administered on 10:03; Start 02/25/18 at 09:30; Stop 02/25/18 at 09:31; Status DC Nicardipine HCl 50 mg/Sodium Chloride 270 ml @ 0 mls/hr CONT PRN IV SEE I/O RECORD Last administered on 02/26/18at 00:29; Start 02/25/18 at 10:45 Aspirin (Ecotrin) 81 mg DAILYWBKFT PO Last administered on 02/27/18 07:28; Start 02/25/18 at 12:00 Enoxaparin Sodium (Lovenox 80mg Syringe) 80 mg Q12HR SQ Last administered on 10:14; Start 02/25/18 at 12:00 Folic Acid (Folic Acid) 1 mg DAILY PO Last administered on 02/27/18 07:29; Start 02/25/18 at 12:00 Thiamine Mononitrate (Vitamin B-1) 100 mg DAILY PO Last administered on 07:29; Start 02/25/18 at 12:00 Lorazepam (Ativan) 2 mg PRN Q4HRS PRN IV ANXIETY / AGITATION; Start 02/25/18 at 11:45 Carvedilol (Coreg) 12.5 mg BIDWMEALS PO Last administered on 02/26/18 07:16; Start 02/25/18 at 17:00; Stop 02/26/18 at 16:08; Status DC Potassium Chloride/Water 100 ml @ 100 mls/hr Q1H IV Last administered on 14:58; Start 02/26/18 at 07:15; Stop 02/26/18 at 11:14; Status DC Info (Anti-Coagulation Monitoring By Pharmacy) 1 each PRN DAILY PRN MC SEE COMMENTS Last administered on 02/27/18 14:23; Start 02/26/18 at 07:30 Regadenoson (Lexiscan) 0.4 mg 1X ONCE IV Last administered on 02/26/18 09:54 ; Start 02/26/18 at 08:15; Stop 02/26/18 at 08:16; Status DC Atorvastatin Calcium (Lipitor) 20 mg QHS PO Last administered on 8/28/18at 20: 19; Start 02/26/18 at 21:00 Isosorbide Mononitrate (Imdur) 30 mg DAILY PO Last administered on 02/26/18at 09 :30; Start 02/26/18 at 09:30; Stop 02/26/18 at 13:32; Status DC Potassium Chloride/Water 50 ml @ 50 mls/hr Q1H IV ; Start 02/26/18 at 10:15; Stop 02/26/18 at 12:14; Status UNV Folic Acid (Folic Acid) 1 mg DAILY PO ; Start 02/26/18 at 11:00; Status Cancel Isosorbide Mononitrate (Imdur) 60 mg DAILY PO Last administered on 02/27/18at 10 :13; Start 02/27/18 at 09:00; Stop 02/27/18 at 13:00; Status DC Hydralazine HCl (Apresoline) 50 mg TID PO ; Start 02/26/18 at 14:00; Stop at 14:00; Status DC Hydralazine HCl (Apresoline) 50 mg PRN Q6HRS PRN PO ELEVATED BP, SEE COMMENTS; Start 02/26/18 at 14:00; Stop 02/26/18 at 16:08; Status DC Isosorbide Mononitrate (Imdur) 30 mg 1X ONCE PO Last administered on at 14:09; Start 02/26/18 at 14:15; Stop 02/26/18 at 14:16; Status DC Carvedilol (Coreg) 25 mg BIDWMEALS PO Last administered on 02/27/18at 07:28; Start 02/26/18 at 17:00 Hydralazine HCl (Apresoline) 50 mg TID PO Last administered on 02/27/18at 13:56 ; Start 02/26/18 at 21:00 Hydralazine HCl (Apresoline Inj) 10 mg ONCE ONCE IVP Last administered on 02/26at 16:24; Start 02/26/18 at 16:15; Stop 02/26/18 at 16:16; Status DC Potassium Chloride (Klor-Con) 20 meq DAILYWBKFT PO Last administered on at 13:56; Start 02/27/18 at 11:00 Ceftriaxone Sodium 1 gm/ Dextrose 50 ml @ 100 mls/hr Q24H IV ; Start 02/27/18 at 11:30; Status UNV Ceftriaxone Sodium (Rocephin) 1 gm Q24H IVP ; Start 02/27/18 at 12:00 Lactobacillus Rhamnosus (Culturelle) 1 cap BID PO ; Start 02/27/18 at 21:00 Potassium Chloride (Klor-Con) 20 meq 1X ONCE PO ; Start 02/27/18 at 12:00; Stop 02/27/18 at 12:01; Status DC Isosorbide Mononitrate (Imdur) 90 mg DAILY PO ; Start 02/28/18 at 09:00 Active Scripts Active Ibuprofen 800 Mg Tablet 800 Mg PO PRN Q6HRS PRN [place] 5-325 Tablet (Acetaminophen/Hydrocodone Bitart) 1 Each Tablet 1-2 Tab PO Q4-6HRS PRN Cipro (Ciprofloxacin Hcl) 500 Mg Tablet 1 Tab PO BID Vital Signs Vital Signs Date Time Temp Pulse Resp B/P (MAP) Pulse Ox O2 Delivery O2 Flow Rate FiO2 02/27/18 14:00 108 18 170/104 (126) 98 Room Air 02/27/18 12:00 98.5 98.5 Labs Laboratory Tests Test 02/25/18 18:40 02/26/18 04:05 02/26/18 16:45 02/26/18 23:15 Troponin I Quantitative 0.130 ng/mL (0.000-0.055) White Blood Count 9.5 x10^3/uL (4.0-11.0) Red Blood Count 4.94 x10^6/uL (4.30-5.70) Hemoglobin 14.7 g/dL (13.0-17.5) Hematocrit 43.9 % (39.0-53.0) Mean Corpuscular Volume 89 fL (79-100) Mean Corpuscular Hemoglobin 30 pg (25-35) Mean Corpuscular Hemoglobin Concent 33 g/dL (31-37) Red Cell Distribution Width 13.9 % (11.5-14.5) Platelet Count 213 x10^3/uL (140-400) Neutrophils (%) (Auto) 69 % (31-73) Lymphocytes (%) (Auto) 21 % (24-48) Monocytes (%) (Auto) 7 % (0-9) Eosinophils (%) (Auto) 2 % (0-3) Basophils (%) (Auto) 1 % (0-3) Neutrophils # (Auto) 6.6 x10^3uL (1.8-7.7) Lymphocytes # (Auto) 2.0 x10^3/uL (1.0-4.8) Monocytes # (Auto) 0.7 x10^3/uL (0.0-1.1) Eosinophils # (Auto) 0.2 x10^3/uL (0.0-0.7) Basophils # (Auto) 0.1 x10^3/uL (0.0-0.2) Sodium Level 135 mmol/L (136-145) Potassium Level 2.7 mmol/L (3.5-5.1) 3.6 mmol/L (3.5-5.1) Chloride Level 97 mmol/L (98-107) Carbon Dioxide Level 30 mmol/L (21-32) Anion Gap 8 (6-14) Blood Urea Nitrogen 18 mg/dL (8-26) Creatinine 1.7 mg/dL (0.7-1.3) Estimated GFR (Cockcroft-Gault) 54.0 Glucose Level 138 mg/dL (70-99) Hemoglobin A1c 4.8 % (4.8-5.6) Calcium Level 9.3 mg/dL (8.5-10.1) Triglycerides Level 262 mg/dL (0-150) Cholesterol Level 252 mg/dL (0-200) LDL Cholesterol, Calculated 157 mg/dL (0-100) VLDL Cholesterol, Calculated 52 mg/dL (0-40) Non-HDL Cholesterol Calculated 209 mg/dL (0-129) HDL Cholesterol 43 mg/dL (40-60) Cholesterol/HDL Ratio 5.9 Urine Collection Type Unknown Urine Color Yellow Urine Clarity Clear Urine pH 6.5 Urine Specific [place] 1.010 Urine Protein Negative mg/dL (NEG-TRACE) Urine Glucose (UA) Negative mg/dL (NEG) Urine Ketones (Stick) Negative mg/dL (NEG) Urine Blood Negative (NEG) Urine Nitrite Positive (NEG) Urine Bilirubin Negative (NEG) Urine Urobilinogen Dipstick 1.0 mg/dL (0.2 mg/dL) Urine Leukocyte Esterase Moderate (NEG) Urine RBC 0 /HPF (0-2) Urine WBC 11-20 /HPF (0-4) Urine Squamous Epithelial Cells Occ /LPF Urine Bacteria Many /HPF (0-FEW) Test 02/27/18 06:35 02/27/18 13:49 White Blood Count 9.3 x10^3/uL (4.0-11.0) Red Blood Count 4.63 x10^6/uL (4.30-5.70) Hemoglobin 13.6 g/dL (13.0-17.5) Hematocrit 40.7 % (39.0-53.0) Mean Corpuscular Volume 88 fL (79-100) Mean Corpuscular Hemoglobin 29 pg (25-35) Mean Corpuscular Hemoglobin Concent 34 g/dL (31-37) Red Cell Distribution Width 13.8 % (11.5-14.5) Platelet Count 241 x10^3/uL (140-400) Neutrophils (%) (Auto) 70 % (31-73) Lymphocytes (%) (Auto) 20 % (24-48) Monocytes (%) (Auto) 8 % (0-9) Eosinophils (%) (Auto) 1 % (0-3) Basophils (%) (Auto) 1 % (0-3) Neutrophils # (Auto) 6.5 x10^3uL (1.8-7.7) Lymphocytes # (Auto) 1.9 x10^3/uL (1.0-4.8) Monocytes # (Auto) 0.8 x10^3/uL (0.0-1.1) Eosinophils # (Auto) 0.1 x10^3/uL (0.0-0.7) Basophils # (Auto) 0.1 x10^3/uL (0.0-0.2) Sodium Level 135 mmol/L (136-145) Potassium Level 3.4 mmol/L (3.5-5.1) Chloride Level 100 mmol/L (98-107) Carbon Dioxide Level 28 mmol/L (21-32) Anion Gap 7 (6-14) Blood Urea Nitrogen 18 mg/dL (8-26) Creatinine 1.7 mg/dL (0.7-1.3) Estimated GFR (Cockcroft-Gault) 54.0 BUN/Creatinine Ratio 11 (6-20) Glucose Level 124 mg/dL (70-99) Calcium Level 9.9 mg/dL (8.5-10.1) Total Bilirubin 1.0 mg/dL (0.2-1.0) Aspartate Amino Transf (AST/SGOT) 24 U/L (15-37) Alanine Aminotransferase (ALT/SGPT) 26 U/L (16-63) Alkaline Phosphatase 78 U/L (46-116) Total Protein 7.9 g/dL (6.4-8.2) Albumin 3.5 g/dL (3.4-5.0) Albumin/Globulin Ratio 0.8 (1.0-1.7) Urine Collection Type Unknown Urine Color Yellow Urine Clarity Cloudy Urine pH 6.5 Urine Specific [place] 1.015 Urine Protein 100 mg/dL (NEG-TRACE) Urine Glucose (UA) Negative mg/dL (NEG) Urine Ketones (Stick) Negative mg/dL (NEG) Urine Blood Moderate (NEG) Urine Nitrite Negative (NEG) Urine Bilirubin Negative (NEG) Urine Urobilinogen Dipstick 1.0 mg/dL (0.2 mg/dL) Urine Leukocyte Esterase Moderate (NEG) Urine RBC >40 /HPF (0-2) Urine WBC 20-40 /HPF (0-4) Urine Bacteria Many /HPF (0-FEW) Laboratory Tests Test 02/26/18 16:45 02/26/18 23:15 02/27/18 06:35 02/27/18 13:49 Potassium Level 3.6 mmol/L (3.5-5.1) 3.4 mmol/L (3.5-5.1) Urine Collection Type Unknown Unknown Urine Color Yellow Yellow Urine Clarity Clear Cloudy Urine pH 6.5 6.5 Urine Specific [place] 1.010 1.015 Urine Protein Negative mg/dL (NEG-TRACE) 100 mg/dL (NEG-TRACE) Urine Glucose (UA) Negative mg/dL (NEG) Negative mg/dL (NEG) Urine Ketones (Stick) Negative mg/dL (NEG) Negative mg/dL (NEG) Urine Blood Negative (NEG) Moderate (NEG) Urine Nitrite Positive (NEG) Negative (NEG) Urine Bilirubin Negative (NEG) Negative (NEG) Urine Urobilinogen Dipstick 1.0 mg/dL (0.2 mg/dL) 1.0 mg/dL (0.2 mg/dL) Urine Leukocyte Esterase Moderate (NEG) Moderate (NEG) Urine RBC 0 /HPF (0-2) >40 /HPF (0-2) Urine WBC 11-20 /HPF (0-4) 20-40 /HPF (0-4) Urine Squamous Epithelial Cells Occ /LPF Urine Bacteria Many /HPF (0-FEW) Many /HPF (0-FEW) White Blood Count 9.3 x10^3/uL (4.0-11.0) Red Blood Count 4.63 x10^6/uL (4.30-5.70) Hemoglobin 13.6 g/dL (13.0-17.5) Hematocrit 40.7 % (39.0-53.0) Mean Corpuscular Volume 88 fL (79-100) Mean Corpuscular Hemoglobin 29 pg (25-35) Mean Corpuscular Hemoglobin Concent 34 g/dL (31-37) Red Cell Distribution Width 13.8 % (11.5-14.5) Platelet Count 241 x10^3/uL (140-400) Neutrophils (%) (Auto) 70 % (31-73) Lymphocytes (%) (Auto) 20 % (24-48) Monocytes (%) (Auto) 8 % (0-9) Eosinophils (%) (Auto) 1 % (0-3) Basophils (%) (Auto) 1 % (0-3) Neutrophils # (Auto) 6.5 x10^3uL (1.8-7.7) Lymphocytes # (Auto) 1.9 x10^3/uL (1.0-4.8) Monocytes # (Auto) 0.8 x10^3/uL (0.0-1.1) Eosinophils # (Auto) 0.1 x10^3/uL (0.0-0.7) Basophils # (Auto) 0.1 x10^3/uL (0.0-0.2) Sodium Level 135 mmol/L (136-145) Chloride Level 100 mmol/L (98-107) Carbon Dioxide Level 28 mmol/L (21-32) Anion Gap 7 (6-14) Blood Urea Nitrogen 18 mg/dL (8-26) Creatinine 1.7 mg/dL (0.7-1.3) Estimated GFR (Cockcroft-Gault) 54.0 BUN/Creatinine Ratio 11 (6-20) Glucose Level 124 mg/dL (70-99) Calcium Level 9.9 mg/dL (8.5-10.1) Total Bilirubin 1.0 mg/dL (0.2-1.0) Aspartate Amino Transf (AST/SGOT) 24 U/L (15-37) Alanine Aminotransferase (ALT/SGPT) 26 U/L (16-63) Alkaline Phosphatase 78 U/L (46-116) Total Protein 7.9 g/dL (6.4-8.2) Albumin 3.5 g/dL (3.4-5.0) Albumin/Globulin Ratio 0.8 (1.0-1.7) Allergies Allergies Coded Allergies Type Severity Reaction Last Updated Verified No Known Drug Allergies 02/02/14 No Disposition/Orders: D/C to Home Patient Instructions d/c planning 38 min see pcp in 2-3 days, MARIA ISABEL Crowe MD Feb 27, 2018 15:33
--- NOTE | 2018-02-27 15:36 | DISCH ---
DISCHARGE INSTRUCTIONS Condition on Discharge Condition on Discharge: Guarded Activity After Discharge Activity Instructions for Disc: Activity as tolerated Bathing Instructions: Shower-keep dressing dry Lifting Instructions after Dis: No heavy lifting, No pulling or pushing Exercise Instruction after Dis: Walk 10 min, 3 x per day Driving Instructions after Dis: Do not drive Diet after Discharge Diet after Discharge: Cardiac Checks after Discharge Checks after discharge: Check blood press - daily Contacting the DR. after DC Call your doctor for: If your condition worsens MARIA ISABEL CORTEZ MD Feb 27, 2018 15:36
[2018-02-27] MEDS ORDERED: CEPHALEXIN 250 MG CAPSULE. PO SCH (17:00)
[2018-02-27] MEDS ORDERED: LACTOBACILLUS RHAMNOSUS GG 1 CAPSULE. PO SCH (21:00)
[2018-02-28] MEDS ORDERED: ISOSORBIDE MONONITRATE ER 30 MG TAB.ER.24H PO SCH (09:00)
[2018-02-28] MEDS ORDERED: FOLI1TAB16 PO (09:09)
[2018-02-28] MEDS ORDERED: CARV12.52 PO (09:09)
[2018-02-28] MEDS ORDERED: THIA100T22 PO (09:09)
[2018-02-28] MEDS ORDERED: LACT1CAP19 PO (09:09)
[2018-02-28] MEDS ORDERED: DOCU-109 PO (09:09)
[2018-02-28] MEDS ORDERED: CEPH250C PO (09:09)
[2018-02-28] MEDS ORDERED: ASPI-630 PO (09:09)
[2018-02-28] MEDS ORDERED: AMLO10TA2 PO (09:09)
== END 2018-02-27 18:00 | disposition home or self-care (01) | DRG 280 ==
LOC: ER 06:48 → 1 WEST ICU 08:20
PROVIDERS: ADMIT Internal Medicine; ATTEND Internal Medicine
DX: I21.4 Non-ST elevation (NSTEMI) myocardial infarction (principal); I50.23 Acute on chronic systolic (congestive) heart failure; I13.0 Hypertensive heart and chronic kidney disease with heart failure and stage 1 through stage 4 chronic kidney disease, or unspecified chronic kidney disease; N17.9 Acute kidney failure, unspecified; I16.1 Hypertensive emergency; N39.0 Urinary tract infection, site not specified; I42.9 Cardiomyopathy, unspecified; I20.9 Angina pectoris, unspecified; F17.210 Nicotine dependence, cigarettes, uncomplicated; F12.10 Cannabis abuse, uncomplicated; F10.20 Alcohol dependence, uncomplicated; E87.6 Hypokalemia; N18.3 Chronic kidney disease, stage 3 (moderate); F19.10 Other psychoactive substance abuse, uncomplicated; E78.5 Hyperlipidemia, unspecified; R73.9 Hyperglycemia, unspecified; Z91.19 Patient's noncompliance with other medical treatment and regimen; Z82.3 Family history of stroke; Z82.49 Family history of ischemic heart disease and other diseases of the circulatory system
CPT/HCPCS: 36415; 71045; 76770; 78452; 80048; 80053; 80061; 80307; 81001; 82553; 83036; 83735; 83880; 84132; 84439; 84443; 84481; 84484; 85025; 87086; 87641; 93005; 93017; 93306; 96365; 96366; 96368; 96374; 96375; 96376; 99291; 99406; A9500; J0360; J0696; J1650; J2270; J2785; J3480; J3490; J7050; G0479; J7030